=== PATIENT | male | born 1960 | race Caucasian/White ===

== ENCOUNTER 2020-01-15 16:30 | Observation (INO) ==
[2020-01-15] MEDS ORDERED: ONDANSETRON INJ 2 MG/ML 2 ML VIAL IV STA (17:16)
[2020-01-15] MEDS: HYDROmorphone INJ 1 MG/ML SYRINGE IV PRN ×3 (17:29→21:12)
--- NOTE | 2020-01-15 17:35 | XRay Report ---
XR chest 1V portable CLINICAL HISTORY: Chest Pain COMPARISON STUDY: No previous studies for comparison. FINDINGS: The bones soft tissues and hemidiaphragms are normal. The cardiomediastinal silhouette is n ormal. The lungs are clear. The pulmonary vasculature is normal. IMPRESSION: Negative chest. ACT 112: Negative or not required by law. The above report was generated using voice recognition software. It may contain grammatical, syntax or spelling errors. Electronically signed by: Erik Romo M.D. 01/15/2020 5:34 PM
[2020-01-15 17:52] LABS: Basophils # (auto) 0.01 K/uL (0-0.2); Basophils % (auto) 0.2 %; Eosinophils # (auto) 0.06 K/uL (0-0.5); Eosinophils % (auto) 1.2 %; Hematocrit (blood only) 40.6 % (42-52); Hemoglobin 14.3 g/dL (14.0-18.0); Immature Granulocytes # (auto) 0.03 K/uL (0.00-0.02); Immature Granulocytes % (auto) 0.6 %; Lymphocytes # (auto) 1.57 K/uL (1.2-3.4); Lymphocytes % (auto) 31.5 %; Mean Corpuscular Hemoglobin 32.9 pg (25-34); Mean Corpuscular Hgb Conc 35.2 g/dL (32-36); Mean Corpuscular Volume 93.3 fL (80-100); Mean Platelet Volume 9.3 fL (7.4-10.4); Monocytes # (auto) 0.28 K/uL (0.11-0.59); Monocytes % (auto) 5.6 %; Neutrophils # (auto) 3.03 K/uL (1.4-6.5); Neutrophils % (auto) 60.9 %; Platelet Count 222 K/uL (130-400); RDW Coefficient of Variation 12.5 % (11.5-14.5); RDW Standard Deviation 42.8 fL (36.4-46.3); Red Blood Count 4.35 M/uL (4.7-6.1); White Blood Count 4.98 K/uL (4.8-10.8)
[2020-01-15 17:55] LABS: iSTAT Creatinine 0.9 mg/dl (0.6-1.3); iSTAT Hemoglobin 13.9 g/dl (14.0-18.0); iSTAT Ionized Calcium 1.15 mmol/l (1.12-1.32); iSTAT Potassium 3.6 mmol/L (3.3-5.0)
[2020-01-15 18:03] LABS: INR 1.1 (0.9-1.1); Partial Thromboplastin Ratio 1.2; Partial Thromboplastin Time 32.6 Seconds (21.0-31.0); Prothrombin Time 11.1 Seconds (9.0-12.0)
[2020-01-15] MEDS ORDERED: OPTIRAY 320 125ml IV PRN (18:07)
[2020-01-15 18:14] LABS: Alanine Aminotransferase 51 U/L (12-78); Albumin Level 4.4 gm/dl (3.4-5.0); Aspartate Aminotransferase 46 U/L (15-37); Blood Urea Nitrogen 10 mg/dl (7-18); Calcium 8.8 mg/dl (8.5-10.1); Carbon Dioxide 24 mmol/L (21-32); Chloride 107 mmol/L (98-107); Est GFR (African American) 95.1; Glucose 92 mg/dl (70-99); Lipase 118 U/L (73-393); Potassium 3.5 mmol/L (3.5-5.1); Sodium 138 mmol/L (136-145)
[2020-01-15 18:24] LABS: Albumin Globulin Ratio 1.2 (0.9-2); Alkaline Phosphatase 66 U/L (45-117); Bilirubin,Total 0.5 mg/dl (0.2-1); Creatine Kinase 448 U/L (39-308); Creatine Kinase MB 10.1 ng/ml (0.5-3.6); Globulin 3.6 gm/dl (2.5-4.0); Troponin I < 0.015 ng/ml (0-0.045)
--- NOTE | 2020-01-15 18:24 | CT Scan Report ---
CT angio chest PE protocol CT DOSE: 839.97 mGy.cm HISTORY: Chest pain. Dyspnea. PE TECHNIQUE: Multiaxial CT images of the chest were performed following the intravenous administration of contrast to evaluate the pulmonary arteries. Maximal intensity projection images were also obtaine d. A dose lowering technique was utilized adhering to the principles of ALARA. COMPARISON STUDY: None. FINDINGS: There is a normal caliber thoracic aorta with no evidence for dissection. There is no evide nce for pulmonary embolus. No pleural effusions. No pneumothorax. The liver and spleen are unremarkab le. No mediastinal or hilar lymphadenopathy. The central airways are patent. The lungs are clear. IMPRESSION: No evidence for pulmonary embolus. The lungs are clear. ACT 112: Negative or not required by law. The above report was generated using voice recognition software. It may contain grammatical, syntax or spelling errors. Electronically signed by: Erik Romo M.D. 01/15/2020 6:23 PM
--- NOTE | 2020-01-15 18:27 | CT Scan Report ---
CT abd pelvis IV con only CT DOSE: HISTORY: Pain Pt c/o RUQ abd pain TECHNIQUE: Multiaxial CT images of the abdomen and pelvis were performed following the use of intrave nous contrast. A dose lowering technique was utilized adhering to the principles of ALARA. COMPARISON STUDY: 07/22/2016 FINDINGS: The lung bases are clear. The liver, spleen, gallbladder, pancreas, kidneys, and adrenal gl ands are within normal limits. No bowel wall thickening or obstruction. The pelvic organs are unremar kable. No suspicious lytic or blastic osseous lesions. Normal appendix. Nonobstructive bowel pattern. IMPRESSION: No significant abnormality identified within the abdomen or pelvis. ACT 112: Negative or not required by law. The above report was generated using voice recognition software. It may contain grammatical, syntax or spelling errors. Electronically signed by: Erik Romo M.D. 01/15/2020 6:26 PM
--- NOTE | 2020-01-15 19:25 | Ultrasound Report ---
US abdomen limited HISTORY: Pain. Nausea. Pt c/o RUQ abd pain. COMPARISON: None. FINDINGS: Pancreas: The pancreas demonstrates a normal echotexture. Liver: Fatty infiltration Gallbladder: No gallbladder wall thickening. No gallstones. CBD: 5 mm Right kidney: No hydronephrosis. 1.6 cm upper pole cyst IMPRESSION: 1. Mild fatty replacement of the liver. 2. Small right renal cyst. 3. Otherwise normal study. ACT 112: Negative or not required by law. The above report was generated using voice recognition software. It may contain grammatical, syntax or spelling errors. Electronically signed by: Erik Romo M.D. 01/15/2020 7:24 PM
[2020-01-15] MEDS ORDERED: SUCRALFATE 1 GM TAB PO STA (19:43)
[2020-01-15] MEDS ORDERED: HYDROmorphone INJ 1 MG/ML SYRINGE IV STA (19:43)
[2020-01-15] MEDS ORDERED: GI COCKTAIL ED USE PO ONE (19:43)
[2020-01-15] MEDS ORDERED: FAMOTIDINE 40 MG TABLET PO ONE (19:43)
[2020-01-15] MEDS ORDERED: LIDOCAINE 5% 1 PATCH TD SCH (19:45)
[2020-01-15] MEDS ORDERED: LORazepam 1 MG TAB SL STA (21:10)
[2020-01-15] MEDS ORDERED: ACETAMINOPHEN 1,000 MG/100 ML VIAL IV STA (21:11)
[2020-01-15] MEDS ORDERED: NITROGLYCERIN 2% OINTMENT 30GM TUBE EXT STA (21:39)
[2020-01-15] MEDS ORDERED: NITROGLYCERIN SL 0.4 MG/TAB TAB SL STA (21:40)
[2020-01-15] MEDS ORDERED: METOPROLOL TARTRATE 1 MG/ML VIAL IV STA (21:43)
[2020-01-15] MEDS ORDERED: MoRPHine SULFATE 4 MG/ML 1 ML CARP\\VIAL IV PRN (21:53)
[2020-01-15] MEDS ORDERED: PROMETHAZINE HCL 12.5 MG in SODIUM CHLORIDE 0.9% 50 ML IV PRN (21:53)
[2020-01-15] MEDS ORDERED: METOPROLOL TARTRATE 50 MG TAB PO STA (22:16)
[2020-01-15] MEDS ORDERED: DOXEPIN HCL 25 MG CAPSULE PO STA (22:16)
[2020-01-15] MEDS ORDERED: AMLODIPINE BESYLATE 5 MG TAB PO ONE (22:16)
--- NOTE | 2020-01-15 22:22 | History & Physical Report ---
Date of Service January 15, 2020 Assessment & Plan (1) Chest pain: Lower chest/epigastric pain Likely reflux hx GERD not on Rx Daily alcohol intake contributory to GERD Rule out ACS given nitro relief nonocclusive CAD as per records Hypertension, elevated Multifactorial : Chest/abdominal pain missed medications ? Alcohol withdrawal chronic diastolic dysfunction as per records, euvolemic asthma/angioedema/idiopathic urticaria as per records, stable OBS PCU PPI trial for possible GERD Follow troponin Cardiology consult RE chest pain relieved by nitroglycerin Analgesia Facilitate home BP meds, may need dose titration DT precautions DVT prophylaxis. Lovenox subcu Full code Text document was generated using [employer] voice recognition software. It may contain grammatical or spelling errors. Kindly contact undersigned for clarification of any documentation item in [employer] ion. History of Present Illness Chief Complaint: Epigastric, rib cage pain Primary Care Provider: Erik Snyder MD History obtained from patient and records. Medical history significant for chronic diastolic dysfunction as per records (EF 55 to 60%, TTE 2016), nonocclusive CAD as per records, hypertension, hyperlipidemia, GERD, asthma, daily alcohol intake as per records, angioedema/idiopathic urticaria as per records. Last confinement June 2016 for atypical chest pain. No inducible ischemia on DSE. 2 weeks history of burning epigastric discomfort going to the rib cage and left axilla with some shortness of breath with nausea and emesis. No cough symptoms, no headache. 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 Admits to daily alcohol intake (> 5 beers a day). Unable to take his home BP meds over the weekend. At the ER, no response to initial GI cocktail and Dilaudid administration. Discomfort relieved by nitroglycerin SL. 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, maintenance work Allergies Allergy/AdvReac Type Severity Reaction Status Date / Time aspirin Allergy Unknown ANAPHYLAXIS Verified 01/15/20 17:46 NSAIDS (Non-Steroidal Allergy Unknown ANAPHYLAXIS Verified 01/15/20 17:46 Anti-Inflamma Home Medications Home Medications Medication Instructions Recorded Confirmed Type amlodipine 5 mg PO DAILY 01/15/20 01/15/20 History doxepin 25 - 50 mg PO HS PRN 01/15/20 01/15/20 History loratadine 10 mg PO DAILY PRN 01/15/20 01/15/20 History metoprolol tartrate 50 mg PO BID 01/15/20 01/15/20 History triamterene-hydrochlorothiazid 1 tab PO QAM 01/15/20 01/15/20 History Past Med/Surg History Social History Preferred Language: Azerbaijani Communication Ability: Effective Counselor/Art Therapist Required: No Beliefs That Will Affect Care: None Current Living Situation: Spouse Other Information That Helps Us Care for You: No Feels Safe at Home: Yes Safety Concerns: Feels Safe At This Time Smoking Status: Former smoker Do You Dip or Chew Tobacco: No ; Hx Alcohol Use: Yes Alcohol type: beer Hx Substance Use: No Review of Systems Review of Systems: As per HPI, all 10 systems reviewed, all other ROS negative Physical Exam Physical Exam: GENERAL: Slightly uncomfortable, anxious, no respiratory distress, obese SKIN: Normal color, warm HEENT: Alopecia, pink palpebral conjunctivae, no ptosis, dry buccal mucosa NECK : Supple, short neck, no tenderness CHEST : CTA, no tenderness HEART : RRR, no obvious murmurs ABDOMEN: Some distention, minimal epigastric tenderness EXTREMITIES : No LE swelling/tenderness, no other conspicuous deformities noted NEUROLOGIC : Coherent, no facial asymmetry, no other gross focality Results & Data Results & Data ([facility]) Vital Signs (Past 12 Hours) Vital Signs Temp Pulse Pulse Resp BP BP Pulse Ox 01/15/20 21:31 96 H 20 95 01/15/20 21:30 85 26 H 172/95 H 91 01/15/20 21:12 86 18 161/92 H 89 L 01/15/20 21:00 72 15 91 01/15/20 20:30 69 19 90 01/15/20 20:00 75 19 94 01/15/20 19:30 78 17 96 01/15/20 18:43 76 18 156/93 H 95 01/15/20 18:41 156/93 H 97 01/15/20 18:01 78 18 152/87 H 96 01/15/20 18:00 71 19 94 01/15/20 17:54 74 20 152/87 H 94 01/15/20 17:44 74 19 209/117 H 91 01/15/20 17:43 75 22 94 01/15/20 17:30 98 01/15/20 17:29 73 18 152/99 H 96 01/15/20 17:28 74 21 152/99 H 92 01/15/20 16:40 37 C 90 22 163/99 H 98 Laboratory Results Laboratory Results WBC 4.98 K/uL (4.8-10.8) 01/15/20 17:25 RBC 4.35 M/uL (4.7-6.1) L 01/15/20 17:25 Hgb 14.3 g/dL (14.0-18.0) 01/15/20 17:25 POC Hgb 13.9 g/dl (14.0-18.0) L 01/15/20 17:42 Hct 40.6 % (42-52) L 01/15/20 17:25 POC Hct 41 % (42-52) L 01/15/20 17:42 MCV 93.3 fL (80-100) 01/15/20 17:25 MCH 32.9 pg (25-34) 01/15/20 17:25 MCHC 35.2 g/dL (32-36) 01/15/20 17:25 RDW Std Deviation 42.8 fL (36.4-46.3) 01/15/20 17:25 RDW Coeff of Angelic 12.5 % (11.5-14.5) 01/15/20 17:25 Plt Count 222 K/uL (130-400) 01/15/20 17:25 MPV 9.3 fL (7.4-10.4) 01/15/20 17:25 Immature Gran % (Auto) 0.6 % 01/15/20 17:25 Neut % (Auto) 60.9 % 01/15/20 17:25 Lymph % (Auto) 31.5 % 01/15/20 17:25 Throckmorton % (Auto) 5.6 % 01/15/20 17:25 Eos % (Auto) 1.2 % 01/15/20 17:25 Baso % (Auto) 0.2 % 01/15/20 17:25 Neut # (Auto) 3.03 K/uL (1.4-6.5) 01/15/20 17:25 Lymph # (Auto) 1.57 K/uL (1.2-3.4) 01/15/20 17:25 Throckmorton # (Auto) 0.28 K/uL (0.11-0.59) 01/15/20 17:25 Eos # (Auto) 0.06 K/uL (0-0.5) 01/15/20 17:25 Baso # (Auto) 0.01 K/uL (0-0.2) 01/15/20 17:25 Immature Gran # (Auto) 0.03 K/uL (0.00-0.02) H 01/15/20 17:25 PT 11.1 Seconds (9.0-12.0) 01/15/20 17:25 INR 1.1 (0.9-1.1) 01/15/20 17:25 APTT 32.6 Seconds (21.0-31.0) H 01/15/20 17:25 PTT Ratio 1.2 01/15/20 17:25 POC Sodium 139 mmol/L (135-144) 01/15/20 17:42 Sodium 138 mmol/L (136-145) 01/15/20 17:25 POC Potassium 3.6 mmol/L (3.3-5.0) 01/15/20 17:42 Potassium 3.5 mmol/L (3.5-5.1) 01/15/20 17:25 POC Chloride 104 mmol/L (101-112) 01/15/20 17:42 Chloride 107 mmol/L (98-107) 01/15/20 17:25 Carbon Dioxide 24 mmol/L (21-32) 01/15/20 17:25 POC Total CO2 22 mmol/L (24-31) L 01/15/20 17:42 Anion Gap 7.0 (3-11) 01/15/20 17:25 POC Anion Gap 17.0 mmol/L (16-25) 01/15/20 17:42 POC BUN 10 mg/dl (7-18) 01/15/20 17:42 BUN 10 mg/dl (7-18) 01/15/20 17:25 Creatinine 1.00 mg/dl (0.6-1.4) 01/15/20 17:25 POC Creatinine 0.9 mg/dl (0.6-1.3) 01/15/20 17:42 Est Cr Clr Drug Dosing 89.0 ml/min 01/15/20 17:25 Est GFR ( Amer) 95.1 01/15/20 17:25 Est GFR (Non-Af Amer) 82.0 01/15/20 17:25 BUN/Creatinine Ratio 10.0 (10-20) 01/15/20 17:25 Glucose 92 mg/dl (70-99) 01/15/20 17:25 POC Glucose (other) 95 mg/dl (70-99) 01/15/20 17:42 Calcium 8.8 mg/dl (8.5-10.1) 01/15/20 17:25 POC Ioniz Calcium Brisa 1.15 mmol/l (1.12-1.32) 01/15/20 17:42 Magnesium 2.3 mg/dl (1.8-2.4) 01/15/20 20:00 Total Bilirubin 0.5 mg/dl (0.2-1) 01/15/20 17:25 AST 46 U/L (15-37) H 01/15/20 17:25 ALT 51 U/L (12-78) 01/15/20 17:25 Alkaline Phosphatase 66 U/L (45-117) 01/15/20 17:25 Total Creatine Kinase 448 U/L (39-308) H 01/15/20 17:25 CK-MB (CK-2) 10.1 ng/ml (0.5-3.6) H 01/15/20 17:25 CK/CKMB % Calc 2.3 (0-3.0) 01/15/20 17:25 Troponin I < 0.015 ng/ml (0-0.045) 01/15/20 20:00 Total Protein 8.0 gm/dl (6.4-8.2) 01/15/20 17:25 Albumin 4.4 gm/dl (3.4-5.0) 01/15/20 17:25 Globulin 3.6 gm/dl (2.5-4.0) 01/15/20 17:25 Albumin/Globulin Ratio 1.2 (0.9-2) 01/15/20 17:25 Lipase 118 U/L (73-393) 01/15/20 17:[address] chest: No evidence for pulmonary embolus. The lungs are clear. CT abdomen pelvis: No significant abnormality identified within the abdomen or pelvis. Abdominal ultrasound: 1. Mild fatty replacement of the liver. 2. Small right renal cyst. 3. Otherwise normal study. EKG as per my interpretation : Rate 85, NSR, LAD, LAFB, no ischemia (1) Chest pain Chest pain type: unspecified Qualified Code(s): R07.9 - Chest pain, unspecified
[2020-01-15] MEDS ORDERED: PANTOprazole 40 MG in SYRINGE 0 ML IV ONE (22:30)
[2020-01-16] MEDS ORDERED: LACTATED RINGER'S 1,000 ML IV SCH (00:46)
--- NOTE | 2020-01-16 01:51 | Emergency Department Note ---
History of Present Illness General Chief complaint: Chest Pain Stated complaint: SOB, CHEST PAIN Time Seen by Provider: 01/15/20 17:01 Source: patient, RN notes reviewed and old records reviewed Mode of arrival: ambulatory Limitations: no limitations History of Present Illness Provider complaint: chest pain Onset (ago): day(s) 2 Location: chest Radiation: abdomen Severity: moderate Pain Consistency: + colicky Maximum Pain Intensity: 7 Current Pain Intensity: 7 Quality: + aching Relieved By: + immobilization Exacerbated By: + movement Associated symptoms: + shortness of breath; no diaphoresis, no fever/chills, no headaches and no nausea/vomiting Treatments prior to arrival: none This is a 59-year-old male who presents emergency department complaining of epigastric pain. The patient reports he was moving heavy objects at his job on Wednesday. He felt his xiphoid part of his sternum was sticking out of his chest and he had to put it back in place. He is complaining of epigastric pain and feels extremely short of breath. He is hyperventilating on my physical examination. Patient describes the pain as burning. Holding still makes the pain better taking a deep breath makes the pain worse. The patient had a cardiac catheterization approximately 5 years ago which was found to be clean. Home Medications Home Medications Medication Instructions Recorded Confirmed Type amlodipine 5 mg PO DAILY 01/15/20 01/15/20 History doxepin 25 - 50 mg PO HS PRN 01/15/20 01/15/20 History loratadine 10 mg PO DAILY PRN 01/15/20 01/15/20 History metoprolol tartrate 50 mg PO BID 01/15/20 01/15/20 History triamterene-hydrochlorothiazid 1 tab PO QAM 01/15/20 01/15/20 History Allergies Allergy/AdvReac Type Severity Reaction Status Date / Time aspirin Allergy Unknown ANAPHYLAXIS Verified 01/15/20 17:46 NSAIDS (Non-Steroidal Allergy Unknown ANAPHYLAXIS Verified 01/15/20 17:46 Anti-Inflamma Past Med/Surg History Social History Preferred Language: Estonian Feels Safe at Home: Yes Smoking Status: Never smoker Review of Systems A total of 10 systems reviewed and were otherwise negative Physical Exam Vital Signs Vital Signs - 24 hr 01/15/20 16:40 01/15/20 17:13 01/15/20 17:28 Temperature 37 C Temperature Source Oral Pulse Rate 90 74 Pulse Rate [Apical] Pulse Rate from SpO2 Sensor 74 Pulse Rhythm Regular Pulse Strength Normal Respiratory Rate 22 21 Respiratory Effort / Characteristics Non-Labored Spontaneous Respiratory Depth Normal Respiratory Pattern Regular Blood Pressure 163/99 H 152/99 H Blood Pressure [Left Arm] Blood Pressure Mean 120 119 Blood Pressure Mean [Left Arm] Blood Pressure Position Sitting Pulse Oximetry 98 92 Oxygen Delivery Method Room Air Room Air Sepsis Recent Fever Within 48 Hours No Sepsis New/Unexplained Change in Mental Status No Sepsis Action Taken by Nursing No Action Required 01/15/20 17:29 01/15/20 17:30 01/15/20 17:43 Temperature Temperature Source Pulse Rate 75 Pulse Rate [Apical] 73 Pulse Rate from SpO2 Sensor 75 Pulse Rhythm Pulse Strength Respiratory Rate 18 22 Respiratory Effort / Characteristics Non-Labored Respiratory Depth Normal Respiratory Pattern Blood Pressure Blood Pressure [Left Arm] 152/99 H Blood Pressure Mean Blood Pressure Mean [Left Arm] 116 Blood Pressure Position Pulse Oximetry 96 98 94 Oxygen Delivery Method Room Air Room Air Sepsis Recent Fever Within 48 Hours Sepsis New/Unexplained Change in Mental Status Sepsis Action Taken by Nursing 01/15/20 17:44 01/15/20 17:54 01/15/20 18:00 Temperature Temperature Source Pulse Rate 74 74 71 Pulse Rate [Apical] Pulse Rate from SpO2 Sensor 75 77 71 Pulse Rhythm Pulse Strength Respiratory Rate 19 20 19 Respiratory Effort / Characteristics Respiratory Depth Respiratory Pattern Blood Pressure 209/117 H 152/87 H Blood Pressure [Left Arm] Blood Pressure Mean 154 100 Blood Pressure Mean [Left Arm] Blood Pressure Position Pulse Oximetry 91 94 94 Oxygen Delivery Method Sepsis Recent Fever Within 48 Hours Sepsis New/Unexplained Change in Mental Status Sepsis Action Taken by Nursing 01/15/20 18:01 01/15/20 18:41 01/15/20 18:43 Temperature Temperature Source Pulse Rate Pulse Rate [Apical] 78 76 Pulse Rate from SpO2 Sensor 71 Pulse Rhythm Pulse Strength Respiratory Rate 18 18 Respiratory Effort / Characteristics Non-Labored Respiratory Depth Normal Respiratory Pattern Blood Pressure 156/93 H Blood Pressure [Left Arm] 152/87 H 156/93 H Blood Pressure Mean 97 Blood Pressure Mean [Left Arm] 108 114 Blood Pressure Position Pulse Oximetry 96 97 95 Oxygen Delivery Method Room Air Room Air Sepsis Recent Fever Within 48 Hours Sepsis New/Unexplained Change in Mental Status Sepsis Action Taken by Nursing 01/15/20 19:30 01/15/20 20:00 01/15/20 20:30 Temperature Temperature Source Pulse Rate 78 75 69 Pulse Rate [Apical] Pulse Rate from SpO2 Sensor 75 74 71 Pulse Rhythm Pulse Strength Respiratory Rate 17 19 19 Respiratory Effort / Characteristics Respiratory Depth Respiratory Pattern Blood Pressure Blood Pressure [Left Arm] Blood Pressure Mean Blood Pressure Mean [Left Arm] Blood Pressure Position Pulse Oximetry 96 94 90 Oxygen Delivery Method Sepsis Recent Fever Within 48 Hours Sepsis New/Unexplained Change in Mental Status Sepsis Action Taken by Nursing 01/15/20 21:00 01/15/20 21:12 01/15/20 21:30 Temperature Temperature Source Pulse Rate 72 86 85 Pulse Rate [Apical] Pulse Rate from SpO2 Sensor 72 86 85 Pulse Rhythm Pulse Strength Respiratory Rate 15 18 26 H Respiratory Effort / Characteristics Respiratory Depth Respiratory Pattern Blood Pressure 161/92 H 172/95 H Blood Pressure [Left Arm] Blood Pressure Mean 101 119 Blood Pressure Mean [Left Arm] Blood Pressure Position Pulse Oximetry 91 89 L 91 Oxygen Delivery Method Sepsis Recent Fever Within 48 Hours Sepsis New/Unexplained Change in Mental Status Sepsis Action Taken by Nursing 01/15/20 21:31 01/15/20 22:00 01/15/20 22:01 Temperature Temperature Source Pulse Rate 96 H 99 H 93 H Pulse Rate [Apical] Pulse Rate from SpO2 Sensor 93 H 98 H 91 H Pulse Rhythm Pulse Strength Respiratory Rate 20 18 21 Respiratory Effort / Characteristics Respiratory Depth Respiratory Pattern Blood Pressure 191/106 H Blood Pressure [Left Arm] Blood Pressure Mean 153 Blood Pressure Mean [Left Arm] Blood Pressure Position Pulse Oximetry 95 91 93 Oxygen Delivery Method Sepsis Recent Fever Within 48 Hours Sepsis New/Unexplained Change in Mental Status Sepsis Action Taken by Nursing 01/15/20 22:30 01/15/20 22:44 01/15/20 22:45 Temperature Temperature Source Pulse Rate 63 91 H 93 H Pulse Rate [Apical] Pulse Rate from SpO2 Sensor 64 88 93 H Pulse Rhythm Pulse Strength Respiratory Rate 17 26 H 19 Respiratory Effort / Characteristics Respiratory Depth Respiratory Pattern Blood Pressure 182/94 H 173/119 H 145/100 H Blood Pressure [Left Arm] Blood Pressure Mean 115 158 133 Blood Pressure Mean [Left Arm] Blood Pressure Position Pulse Oximetry 95 93 95 Oxygen Delivery Method Sepsis Recent Fever Within 48 Hours Sepsis New/Unexplained Change in Mental Status Sepsis Action Taken by Nursing 01/15/20 22:47 01/15/20 22:57 01/15/20 23:00 Temperature Temperature Source Pulse Rate 83 73 77 Pulse Rate [Apical] Pulse Rate from SpO2 Sensor 83 73 74 Pulse Rhythm Pulse Strength Respiratory Rate 18 14 16 Respiratory Effort / Characteristics Respiratory Depth Respiratory Pattern Blood Pressure 145/82 H 138/94 Blood Pressure [Left Arm] Blood Pressure Mean 91 101 Blood Pressure Mean [Left Arm] Blood Pressure Position Pulse Oximetry 95 90 88 L Oxygen Delivery Method Sepsis Recent Fever Within 48 Hours Sepsis New/Unexplained Change in Mental Status Sepsis Action Taken by Nursing 01/15/20 23:01 01/15/20 23:15 01/15/20 23:26 Temperature Temperature Source Pulse Rate 75 81 58 L Pulse Rate [Apical] Pulse Rate from SpO2 Sensor 75 81 60 Pulse Rhythm Pulse Strength Respiratory Rate 16 14 16 Respiratory Effort / Characteristics Respiratory Depth Respiratory Pattern Blood Pressure 132/104 H 150/92 H Blood Pressure [Left Arm] Blood Pressure Mean 108 115 Blood Pressure Mean [Left Arm] Blood Pressure Position Pulse Oximetry 90 93 Oxygen Delivery Method Sepsis Recent Fever Within 48 Hours Sepsis New/Unexplained Change in Mental Status Sepsis Action Taken by Nursing 01/15/20 23:30 01/15/20 23:45 01/16/20 00:00 Temperature Temperature Source Pulse Rate 57 L 59 L 59 L Pulse Rate [Apical] Pulse Rate from SpO2 Sensor 57 L 57 L 58 L Pulse Rhythm Pulse Strength Respiratory Rate 13 15 17 Respiratory Effort / Characteristics Respiratory Depth Respiratory Pattern Blood Pressure 145/88 H 143/87 H 145/86 H Blood Pressure [Left Arm] Blood Pressure Mean 102 109 107 Blood Pressure Mean [Left Arm] Blood Pressure Position Pulse Oximetry 93 92 94 Oxygen Delivery Method Sepsis Recent Fever Within 48 Hours Sepsis New/Unexplained Change in Mental Status Sepsis Action Taken by Nursing 01/16/20 00:15 01/16/20 00:30 01/16/20 00:45 Temperature Temperature Source Pulse Rate 56 L 59 L 58 L Pulse Rate [Apical] Pulse Rate from SpO2 Sensor 54 L 59 L 58 L Pulse Rhythm Pulse Strength Respiratory Rate 13 11 L 17 Respiratory Effort / Characteristics Respiratory Depth Respiratory Pattern Blood Pressure 130/81 125/89 143/82 H Blood Pressure [Left Arm] Blood Pressure Mean 102 104 107 Blood Pressure Mean [Left Arm] Blood Pressure Position Pulse Oximetry 94 94 94 Oxygen Delivery Method Sepsis Recent Fever Within 48 Hours Sepsis New/Unexplained Change in Mental Status Sepsis Action Taken by Nursing 01/16/20 01:00 Temperature Temperature Source Pulse Rate 59 L Pulse Rate [Apical] Pulse Rate from SpO2 Sensor 57 L Pulse Rhythm Pulse Strength Respiratory Rate 19 Respiratory Effort / Characteristics Respiratory Depth Respiratory Pattern Blood Pressure 120/82 Blood Pressure [Left Arm] Blood Pressure Mean 101 Blood Pressure Mean [Left Arm] Blood Pressure Position Pulse Oximetry 94 Oxygen Delivery Method Sepsis Recent Fever Within 48 Hours Sepsis New/Unexplained Change in Mental Status Sepsis Action Taken by Nursing VITAL SIGNS - Vital signs and nursing notes were reviewed. GENERAL - 59-year-old male appearing stated age who is writhing in pain, hyperventilating. Communicates well with provider and answers questions appro priately. SKIN - Without rashes. HEAD - NC/AT. EYES - PERRL with EOMI bilaterally. Sclera anicteric. Palpebral conjunctiva pink and moist with no injection noted. EARS - No deformities of external structures noted on gross examination bilaterally. No pain elicited with palpation of the tragus bilaterally. External auditory canals without discharge or otorrhea. Tympanic membranes pearly norman wi thout retraction or bulging. No fluid or purulent material visualized behind the TM. Handle of malleus, umbo, cone of light, pars tensa/flaccid all easily visualized. NOSE - Midline and without cyanosis. No epistaxis or purulent drainage noted. Septum midline without deviation or septal hematoma noted. MOUTH/OROPHARYNX - Without perioral cyanosis. Buccal mucosa pink and moist and without leukoplakia. Tongue midline with equal elevation of palate bilaterally. No tonsillar hypertrophy, erythema, or exudates noted. dentition noted. NECK - Neck with FROM. Supple to palpation. lymphadenopathy noted. No nuchal rigidity. LUNGS - Chest wall symmetric without accessory muscle use, intercostals retractions, or central cyanosis. Normal vesicular breath sounds CTA B/L. No wheezes, rales, or rhonchi appreciated. CARDIAC - RRR with S1/S2. No murmur, rubs, or gallops appreciated. ABDOMEN - Abdominal contour without pulsations or visible masses. BS normoactive all four quadrants. No tenderness, palpable masses, hepatosplenomegaly, or ascites noted. EXTREMITIES - No clubbing or peripheral cyanosis. No pretibial edema present. +3/5 radial, posterior tibial, and dorsalis pedis pulses palpated throughout. +5/5 strength noted in UE/LE bilaterally. NEUROLOGIC - Cranial nerves II through XII grossly intact. Sensory intact to light touch throughout. Patellar reflexes +2/4. PSYCH - A&Ox3 and cooperates fully with examiner. Pt is very pleasant and interacts well with examiner. Course Administered Medications Lactated Ringer's (Lr) 1,000 mls @ 40 mls/hr IV .Q24H TOSHA Stop: 02/15/20 00:45 Last Admin: 01/16/20 01:18 Dose: 40 mls/hr Documented by: [id number] Ioversol (Optiray 320 125ml) 119 ml IV ONCE PRN PRN Reason: Interaction Checking Stop: 01/19/20 18:06 Last Admin: 01/15/20 18:08 Dose: 119 ml Documented by: [id number] Lidocaine (Lidoderm 5%) 1 patch TD QAM TOSHA Stop: 02/14/20 19:44 Last Admin: 01/15/20 20:06 Dose: 1 patch Documented by: [id number] Discontinued Medications Al Hydrox/Mg Hydrox/Simethicone () 1 dose PO ONE ONE Stop: 01/15/20 19:44 Last Admin: 01/15/20 20:06 Dose: 1 dose Documented by: [id number] Amlodipine Besylate (Norvasc) 5 mg PO NOW ONE Stop: 01/15/20 22:17 Last Admin: 01/15/20 23:27 Dose: 5 mg Documented by: [id number] Doxepin HCl (Sinequan) 25 mg PO NOW STA Stop: 01/15/20 22:17 Last Admin: 01/15/20 22:42 Dose: 25 mg Documented by: [id number] Famotidine (Pepcid) 40 mg PO NOW ONE Stop: 01/15/20 19:44 Last Admin: 01/15/20 20:08 Dose: 40 mg Documented by: [id number] Hydromorphone HCl (Dilaudid) 1 mg IV Q15M PRN PRN Reason: Pain Stop: 01/29/20 17:15 Last Admin: 01/15/20 21:12 Dose: 1 mg Documented by: [id number] Admin: 01/15/20 18:44 Dose: 1 mg Documented by: [id number] Admin: 01/15/20 17:29 Dose: 1 mg Documented by: [id number] Hydromorphone HCl (Dilaudid) 1 mg IV NOW STA Stop: 01/15/20 19:44 Last Admin: 01/15/20 20:06 Dose: 1 mg Documented by: [id number] Acetaminophen (Ofirmev) 1,000 mg in 100 mls @ 400 mls/hr IV NOW STA Stop: 01/15/20 21:25 Last Infusion: 01/15/20 21:41 Dose: 0 mls/hr Documented by: [id number] Admin: 01/15/20 21:24 Dose: 400 mls/hr Documented by: [id number] Pantoprazole Sodium 40 mg/ (Syringe) 10 mls @ 5 mls/min IV NOW ONE Stop: 01/15/20 22:31 Last Admin: 01/15/20 22:42 Dose: 5 mls/min Documented by: [id number] Lorazepam (Ativan) 1 mg SL NOW STA Stop: 01/15/20 21:11 Last Admin: 01/15/20 21:24 Dose: 1 mg Documented by: [id number] Metoprolol Tartrate (Lopressor) 2.5 mg IV NOW STA Stop: 01/15/20 21:44 Last Admin: 01/15/20 22:41 Dose: 2.5 mg Documented by: [id number] Metoprolol Tartrate (Lopressor) 50 mg PO NOW STA Stop: 01/15/20 22:17 Last Admin: 01/15/20 23:26 Dose: 50 mg Documented by: [id number] Nitroglycerin (Nitrostat) 0.4 mg SL NOW STA Stop: 01/15/20 21:41 Last Admin: 01/15/20 22:41 Dose: 0.4 mg Documented by: [id number] Ondansetron HCl (Zofran) 4 mg IV NOW STA Stop: 01/15/20 17:17 Last Admin: 01/15/20 17:29 Dose: 4 mg Documented by: [id number] Sucralfate (Carafate Tab) 1 gm PO NOW STA Stop: 01/15/20 19:44 Last Admin: 01/15/20 20:10 Dose: 1 gm Documented by: [id number] Medical Decision Making Differential Diagnosis Cardiac ischemia, aortic dissection, pulmonary embolism, pneumothorax, pneumonia, pericarditis, myocarditis, esophageal rupture, GERD, cholecystitis, pancreatitis, musculoskeletal, as well as other pathologies. Medical Records Attestation: I reviewed the patient's medical records. Home Medications Current Medication List: was personally reviewed by me Laboratory Data Attestation: I reviewed the patient's lab results. Result diagrams: 01/15/20 17:25 01/15/20 17:25 Lab Results 01/15/20 01/15/20 01/15/20 Range/Units 17:25 17:25 17:25 WBC 4.98 (4.8-10.8) K/uL RBC 4.35 L (4.7-6.1) M/uL Hgb 14.3 (14.0-18.0) g/dL POC Hgb (14.0-18.0) g/dl Hct 40.6 L (42-52) % POC Hct (42-52) % MCV 93.3 (80-100) fL MCH 32.9 (25-34) pg MCHC 35.2 (32-36) g/dL RDW Std Deviation 42.8 (36.4-46.3) fL RDW Coeff of Angelic 12.5 (11.5-14.5) % Plt Count 222 (130-400) K/uL MPV 9.3 (7.4-10.4) fL Immature Gran % (Auto) 0.6 % Neut % (Auto) 60.9 % Lymph % (Auto) 31.5 % [place] % (Auto) 5.6 % Eos % (Auto) 1.2 % Baso % (Auto) 0.2 % Neut # (Auto) 3.03 (1.4-6.5) K/uL Lymph # (Auto) 1.57 (1.2-3.4) K/uL [place] # (Auto) 0.28 (0.11-0.59) K/uL Eos # (Auto) 0.06 (0-0.5) K/uL Baso # (Auto) 0.01 (0-0.2) K/uL Immature Gran # (Auto) 0.03 H (0.00-0.02) K/uL PT 11.1 (9.0-12.0) Seconds INR 1.1 (0.9-1.1) APTT 32.6 H (21.0-31.0) Seconds PTT Ratio 1.2 POC Sodium (135-144) mmol/L Sodium 138 (136-145) mmol/L POC Potassium (3.3-5.0) mmol/L Potassium 3.5 (3.5-5.1) mmol/L POC Chloride (101-112) mmol/L Chloride 107 (98-107) mmol/L Carbon Dioxide 24 (21-32) mmol/L POC Total CO2 (24-31) mmol/L Anion Gap 7.0 (3-11) POC Anion Gap (16-25) mmol/L POC BUN (7-18) mg/dl BUN 10 (7-18) mg/dl Creatinine 1.00 (0.6-1.4) mg/dl POC Creatinine (0.6-1.3) mg/dl Est Cr Clr Drug Dosing 89.0 ml/min Est GFR ( Amer) 95.1 Est GFR (Non-Af Amer) 82.0 BUN/Creatinine Ratio 10.0 (10-20) Glucose 92 (70-99) mg/dl POC Glucose (other) (70-99) mg/dl Calcium 8.8 (8.5-10.1) mg/dl POC Ioniz Calcium Brisa (1.12-1.32) mmol/l Magnesium (1.8-2.4) mg/dl Total Bilirubin 0.5 (0.2-1) mg/dl AST 46 H (15-37) U/L ALT 51 (12-78) U/L Alkaline Phosphatase 66 (45-117) U/L Total Creatine Kinase 448 H (39-308) U/L CK-MB (CK-2) 10.1 H (0.5-3.6) ng/ml CK/CKMB % Calc 2.3 (0-3.0) Troponin I < 0.015 (0-0.045) ng/ml Total Protein 8.0 (6.4-8.2) gm/dl Albumin 4.4 (3.4-5.0) gm/dl Globulin 3.6 (2.5-4.0) gm/dl Albumin/Globulin Ratio 1.2 (0.9-2) Lipase 118 (73-393) U/L Ethyl Alcohol mg/dL (0-3) mg/dl 01/15/20 01/15/20 01/15/20 Range/Units 17:42 20:00 20:00 WBC (4.8-10.8) K/uL RBC (4.7-6.1) M/uL Hgb (14.0-18.0) g/dL POC Hgb 13.9 L (14.0-18.0) g/dl Hct (42-52) % POC Hct 41 L (42-52) % MCV (80-100) fL MCH (25-34) pg MCHC (32-36) g/dL RDW Std Deviation (36.4-46.3) fL RDW Coeff of Angelic (11.5-14.5) % Plt Count (130-400) K/uL MPV (7.4-10.4) fL Immature Gran % (Auto) % Neut % (Auto) % Lymph % (Auto) % [place] % (Auto) % Eos % (Auto) % Baso % (Auto) % Neut # (Auto) (1.4-6.5) K/uL Lymph # (Auto) (1.2-3.4) K/uL [place] # (Auto) (0.11-0.59) K/uL Eos # (Auto) (0-0.5) K/uL Baso # (Auto) (0-0.2) K/uL Immature Gran # (Auto) (0.00-0.02) K/uL PT (9.0-12.0) Seconds INR (0.9-1.1) APTT (21.0-31.0) Seconds PTT Ratio POC Sodium 139 (135-144) mmol/L Sodium (136-145) mmol/L POC Potassium 3.6 (3.3-5.0) mmol/L Potassium (3.5-5.1) mmol/L POC Chloride 104 (101-112) mmol/L Chloride (98-107) mmol/L Carbon Dioxide (21-32) mmol/L POC Total CO2 22 L (24-31) mmol/L Anion Gap (3-11) POC Anion Gap 17.0 (16-25) mmol/L POC BUN 10 (7-18) mg/dl BUN (7-18) mg/dl Creatinine (0.6-1.4) mg/dl POC Creatinine 0.9 (0.6-1.3) mg/dl Est Cr Clr Drug Dosing ml/min Est GFR ( Amer) Est GFR (Non-Af Amer) BUN/Creatinine Ratio (10-20) Glucose (70-99) mg/dl POC Glucose (other) 95 (70-99) mg/dl Calcium (8.5-10.1) mg/dl POC Ioniz Calcium Brisa 1.15 (1.12-1.32) mmol/l Magnesium 2.3 (1.8-2.4) mg/dl Total Bilirubin (0.2-1) mg/dl AST (15-37) U/L ALT (12-78) U/L Alkaline Phosphatase (45-117) U/L Total Creatine Kinase (39-308) U/L CK-MB (CK-2) (0.5-3.6) ng/ml CK/CKMB % Calc (0-3.0) Troponin I < 0.015 (0-0.045) ng/ml Total Protein (6.4-8.2) gm/dl Albumin (3.4-5.0) gm/dl Globulin (2.5-4.0) gm/dl Albumin/Globulin Ratio (0.9-2) Lipase (73-393) U/L Ethyl Alcohol mg/dL (0-3) mg/dl 01/15/20 01/15/20 Range/Units 22:47 22:47 WBC (4.8-10.8) K/uL RBC (4.7-6.1) M/uL Hgb (14.0-18.0) g/dL POC Hgb (14.0-18.0) g/dl Hct (42-52) % POC Hct (42-52) % MCV (80-100) fL MCH (25-34) pg MCHC (32-36) g/dL RDW Std Deviation (36.4-46.3) fL RDW Coeff of Angelic (11.5-14.5) % Plt Count (130-400) K/uL MPV (7.4-10.4) fL Immature Gran % (Auto) % Neut % (Auto) % Lymph % (Auto) % [place] % (Auto) % Eos % (Auto) % Baso % (Auto) % Neut # (Auto) (1.4-6.5) K/uL Lymph # (Auto) (1.2-3.4) K/uL [place] # (Auto) (0.11-0.59) K/uL Eos # (Auto) (0-0.5) K/uL Baso # (Auto) (0-0.2) K/uL Immature Gran # (Auto) (0.00-0.02) K/uL PT (9.0-12.0) Seconds INR (0.9-1.1) APTT (21.0-31.0) Seconds PTT Ratio POC Sodium (135-144) mmol/L Sodium (136-145) mmol/L POC Potassium (3.3-5.0) mmol/L Potassium (3.5-5.1) mmol/L POC Chloride (101-112) mmol/L Chloride (98-107) mmol/L Carbon Dioxide (21-32) mmol/L POC Total CO2 (24-31) mmol/L Anion Gap (3-11) POC Anion Gap (16-25) mmol/L POC BUN (7-18) mg/dl BUN (7-18) mg/dl Creatinine (0.6-1.4) mg/dl POC Creatinine (0.6-1.3) mg/dl Est Cr Clr Drug Dosing ml/min Est GFR ( Amer) Est GFR (Non-Af Amer) BUN/Creatinine Ratio (10-20) Glucose (70-99) mg/dl POC Glucose (other) (70-99) mg/dl Calcium (8.5-10.1) mg/dl POC Ioniz Calcium Brisa (1.12-1.32) mmol/l Magnesium (1.8-2.4) mg/dl Total Bilirubin (0.2-1) mg/dl AST (15-37) U/L ALT (12-78) U/L Alkaline Phosphatase (45-117) U/L Total Creatine Kinase (39-308) U/L CK-MB (CK-2) (0.5-3.6) ng/ml CK/CKMB % Calc (0-3.0) Troponin I < 0.015 (0-0.045) ng/ml Total Protein (6.4-8.2) gm/dl Albumin (3.4-5.0) gm/dl Globulin (2.5-4.0) gm/dl Albumin/Globulin Ratio (0.9-2) Lipase (73-393) U/L Ethyl Alcohol mg/dL < 3.0 (0-3) mg/dl Imaging Data Radiologist's Impression: [facility], [place] [phone] Ultrasound Report Patient: LANCE BENTLEY EAdmit Date: 01/15/20 MR#: [id number]: [address] [facility] Acct ID:[id number]: Date: [address] [place] [address] Zip: [place] [address] Age: 59Location: ED Sex: M Room/Bed: Att Phy:Diagnosis: SOB, CHEST PAIN Erica Phy: Erik Snyder, MDService Date: 01/15/20 Fam Phy:Interpreting Phy: Erik Romo MD Admit Phy: Ordering Phy: Miguelangel Magallon MD cc: ~ US abdomen limited HISTORY: Pain. Nausea. Pt c/o RUQ abd pain. COMPARISON: None. FINDINGS: Pancreas: The pancreas demonstrates a normal echotexture. Liver: Fatty infiltration Gallbladder: No gallbladder wall thickening. No gallstones. CBD: 5 mm Right kidney: No hydronephrosis. 1.6 cm upper pole cyst IMPRESSION: 1. Mild fatty replacement of the liver. 2. Small right renal cyst. 3. Otherwise normal study. ACT 112: Negative or not required by law. The above report was generated using voice recognition software. It may contain grammatical, syntax or spelling errors. Electronically signed by: Erik Romo M.D. 01/15/2020 7:24 PM Dictated: 01/15/201922 Transcribed: 01/15/201922 [facility] [phone] XRay Report Patient: LANCE BENTLEY EAdmit Date: 01/15/20 MR#: [id number]: [address] [facility] Acct ID:[id number]: Date: [address] [place] [address] Zip: [place] [address] Age: 59Location: ED Sex: M Room/Bed: Att Phy:Diagnosis: SOB, CHEST PAIN Erica Phy: Erik Snyder, MDService Date: 01/15/20 Fam Phy:Interpreting Phy: Erik Romo MD Admit Phy: Ordering Phy: Miguelangel Magallon MD cc: ~ XR chest 1V portable CLINICAL HISTORY: Chest Pain COMPARISON STUDY: No previous studies for comparison. FINDINGS: The bones soft tissues and hemidiaphragms are normal. The cardiomediastinal silhouette is normal. The lungs are clear. The pulmonary vasculature is normal. IMPRESSION: Negative chest. ACT 112: Negative or not required by law. The above report was generated using voice recognition software. It may contain grammatical, syntax or spelling errors. Electronically signed by: Erik Romo M.D. 01/15/2020 5:34 PM Dictated: 01/15/201733 Transcribed: 01/15/201733 [place], [place] [phone] CT Scan Report Patient: LANCE BENTLEY EAdmit Date: 01/15/20 MR#: [id number]: [address] [facility] Acct ID:[id number]: Date: 1960[facility] Zip: [place] [address] Age: 59Location: ED Sex: M Room/Bed: Att Phy:Diagnosis: SOB, CHEST PAIN Erica Phy: Erik Snyder, MDService Date: 01/15/20 Fam Phy:Interpreting Phy: Erik Romo MD Admit Phy: Ordering Phy: Miguelangel Magallon MD cc: ~ CT abd pelvis IV con only CT DOSE: HISTORY: Pain Pt c/o RUQ abd pain TECHNIQUE: Multiaxial CT images of the abdomen and pelvis were performed following the use of intravenous contrast. A dose lowering technique was u tilized adhering to the principles of ALARA. COMPARISON STUDY: 07/22/2016 FINDINGS: The lung bases are clear. The liver, spleen, gallbladder, pancreas, kidneys, and adrenal glands are within normal limits. No bowel wall thickening or obstruction. The pelvic organs are unremarkable. No suspicious lytic or blastic osseous lesions. Normal appendix. Nonobstructive bowel pattern. IMPRESSION: No significant abnormality identified within the abdomen or pelvis. ACT 112: Negative or not required by law. The above report was generated using voice recognition software. It may contain grammatical, syntax or spelling errors. Electronically signed by: Erik Romo M.D. 01/15/2020 6:26 PM Dictated: 01/15/201823 Transcribed: 01/15/201823 [place], [place] [phone] CT Scan Report Patient: LANCE BENTLEY Date: 01/15/20 MR#: [id number]: 122 [facility] Acct ID:[id number]: Date: 1960[facility] Zip: [place] [address] Age: 59Location: ED Sex: M Room/Bed: Att Phy:Diagnosis: SOB, CHEST PAIN Erica Phy: Erik Snyder, MDService Date: 01/15/20 Fam Phy:Interpreting Phy: Erik Romo MD Admit Phy: Ordering Phy: Miguelangel Magallon MD cc: ~ CT angio chest PE protocol CT DOSE: 839.97 mGy.cm HISTORY: Chest pain. Dyspnea. PE TECHNIQUE: Multiaxial CT images of the chest were performed following the intravenous administration of contrast to evaluate the pulmonary arteries. Maximal intensity projection images were also obtained. A dose lowering technique was utilized adhering to the principles of ALARA. COMPARISON STUDY: None. FINDINGS: There is a normal caliber thoracic aorta with no evidence for disse ction. There is no evidence for pulmonary embolus. No pleural effusions. No pneumothorax. The liver and spleen are unremarkable. No mediastinal or hilar lymphadenopathy. The central airways are patent. The lungs are clear. IMPRESSION: No evidence for pulmonary embolus. The lungs are clear. ACT 112: Negative or not required by law. The above report was generated using voice recognition software. It may contain grammatical, syntax or spelling errors. Electronically signed by: Erik Romo M.D. 01/15/2020 6:23 PM Dictated: 01/15/201820 Transcribed: 01/15/201820 ECG Data Attestation: I personally reviewed and interpreted this ECG as follows: Indication: chest pain Rate (beats per minute): 86 Rhythm: normal sinus Findings: no ST depression and no ST elevation Comparison ECG Date: no prior available Additional Comments: Repeat EKG shows a QTC of 434 normal axis normal sinus rhythm normal EKG no ST elevation or depression rate of 66 unchanged from previous Blood Pressure Blood Pressure Findings: Normal blood pressure MDM Narrative This is a 59-year-old male who presents emergency department complaining of epigastric pain. Patient feels that he hurt a rib over the weekend. I try to get this patient's pain under control multiple times here in the emergency department by trying multiple medications including Tylenol Dilaudid GI cocktail Pepcid Carafate, Toradol and finally nitro. Patient was writhing around the bed multiple times and was hyperventilating. He was also given Ativan. Serial EKGs were performed in this patient in the emergency department and at no time the patient show ischemia on the EKG. He was sent for CAT scan of the chest abdomen pelvis however this also does not show any acute process. Based on all these findings along with the fact that I cannot get the patient's pain under control I did discuss the case with the hospitalist service who did agree to admit the patient. Patient is in agreement with the treatment plan. Patient was seen and evaluated as above in room A2. Review was performed of nursing notes and vital signs. I did review pertinent previous visits and miguel a ent history. After obtaining a thorough history and physical examination the above work up was performed. An order was placed for continuous cardiac monitoring. The monitor shows a rate of 59 with Normal Sinus rhythm. The patient was evaluated during the global COVID-19 pandemic, and that diagnosis was suspected/considered upon their initial presentation. Their evaluation, treatment and testing was consistent with current guidelines for patients who present with complaints or symptoms that may be related to COVID- 19. Impression & Plan Chest pain, Asthma, mild intermittent Discharge Plan Visit Data Chief Complaint: Chest Pain Stated Complaint: SOB, CHEST PAIN ED Provider: Miguelangel Magallon Discharge Problem: Chest pain, Asthma, mild intermittent Forms Stand Alone Forms: [facility] Prescriptions Prescriptions: No Action amlodipine 5 mg Tablet 5 mg PO DAILY RF: 0 metoprolol tartrate 50 mg Tablet 50 mg PO BID RF: 0 triamterene-hydrochlorothiazid 37.5-25 mg tablet 1 tab PO QAM RF: 0 loratadine 10 mg Tablet 10 mg PO DAILY PRN (Reason: Allergy Symptoms) RF: 0 doxepin 25 mg capsule 25 - 50 mg PO HS PRN (Reason: Hives) RF: 0 Discharge Problem: Chest pain Qualifiers: Chest pain type: unspecified Qualified Code(s): R07.9 - Chest pain, unspecified Asthma, mild intermittent Qualifiers: Asthma complication type: unspecified Qualified Code(s): J45.20 - Mild intermittent asthma, uncomplicated
[2020-01-16] MEDS ORDERED: DOXEPIN HCL 25 MG CAPSULE PO PRN (01:59)
[2020-01-16] MEDS ORDERED: LORazepam 0.5 MG/1 ML VIAL IV PRN (01:59)
[2020-01-16] MEDS ORDERED: ACETAMINOPHEN 325 MG TAB PO PRN (01:59)
[2020-01-16] MEDS ORDERED: PROMETHAZINE HCL 12.5 MG in SODIUM CHLORIDE 0.9% 50 ML IV PRN (01:59)
[2020-01-16] MEDS ORDERED: LORATADINE 10 MG TAB PO PRN (01:59)
[2020-01-16] MEDS ORDERED: POTASSIUM CHLORIDE 40 MEQ in SODIUM CHLORIDE 0.9% 1000ML 1,000 ML IV ONE (01:59)
[2020-01-16] MEDS: OXYCODONE HCL IR 5 MG TAB (IMMEDIATE RELEASE) PO PRN ×3 (03:48→16:19)
[2020-01-16] MEDS ORDERED: AMLODIPINE BESYLATE 5 MG TAB PO ONE (04:05)
[2020-01-16] MEDS ORDERED: GABAPENTIN 1200MG ALCOHOL WITHDRAWAL LOAD PO STA (04:06)
[2020-01-16] MEDS ORDERED: ATIVAN IV ALCOHOL WITHDRAWL IV PRN (04:06)
[2020-01-16] MEDS ORDERED: LORazepam 2 MG/4 ML VIAL IV PRN (04:06)
[2020-01-16] MEDS ORDERED: LORazepam 3 MG/6 ML VIAL IV PRN (04:06)
[2020-01-16] MEDS ORDERED: LORazepam 1 MG/2 ML VIAL IV PRN (04:06)
[2020-01-16] MEDS ORDERED: THIAMINE HCL 100 MG in SYRINGE 9 ML IV STA (04:09)
[2020-01-16] MEDS ORDERED: GABAPENTIN 600 MG TAB PO SCH (04:15)
[2020-01-16 04:29] LABS: Basophils # (auto) 0.01 K/uL (0-0.2); Basophils % (auto) 0.2 %; Eosinophils # (auto) 0.03 K/uL (0-0.5); Eosinophils % (auto) 0.5 %; Hematocrit (blood only) 40.3 % (42-52); Hemoglobin 13.7 g/dL (14.0-18.0); Immature Granulocytes # (auto) 0.01 K/uL (0.00-0.02); Immature Granulocytes % (auto) 0.2 %; Lymphocytes # (auto) 1.36 K/uL (1.2-3.4); Lymphocytes % (auto) 22.6 %; Mean Corpuscular Hemoglobin 32.2 pg (25-34); Mean Corpuscular Volume 94.6 fL (80-100); Mean Platelet Volume 9.3 fL (7.4-10.4); Monocytes # (auto) 0.36 K/uL (0.11-0.59); Neutrophils # (auto) 4.24 K/uL (1.4-6.5); Neutrophils % (auto) 70.5 %; Platelet Count 213 K/uL (130-400); RDW Coefficient of Variation 12.5 % (11.5-14.5); RDW Standard Deviation 43.2 fL (36.4-46.3); Red Blood Count 4.26 M/uL (4.7-6.1); White Blood Count 6.01 K/uL (4.8-10.8)
[2020-01-16 04:38] LABS: Partial Thromboplastin Ratio 1.1; Partial Thromboplastin Time 30.8 Seconds (21.0-31.0)
[2020-01-16 04:45] LABS: Blood Urea Nitrogen 11 mg/dl (7-18); Calcium 8.5 mg/dl (8.5-10.1); Carbon Dioxide 25 mmol/L (21-32); Chloride 105 mmol/L (98-107); Creatinine Clr Calc Pharmacy 84.2 ml/min; Est GFR (African American) 92.8; Est GFR (Non-African American) 80.1; Glucose 113 mg/dl (70-99); Potassium 3.9 mmol/L (3.5-5.1); Sodium 138 mmol/L (136-145)
[2020-01-16 04:49] LABS: Chol HDL Ratio 5; Cholesterol 203 mg/dl (0-200); HDL Cholesterol 40 mg/dl; LDL Cholesterol Calculated 85 mg/dl; Triglycerides 388 mg/dl (0-150); Troponin I < 0.015 ng/ml (0-0.045); VLDL Cholesterol 78 mg/dl
[2020-01-16] MEDS ORDERED: PANTOprazole 40 MG TAB PO SCH (09:00)
[2020-01-16] MEDS ORDERED: AMLODIPINE BESYLATE 5 MG TAB PO SCH (09:00)
[2020-01-16] MEDS ORDERED: FOLIC ACID 1 MG TAB PO SCH (09:00)
[2020-01-16] MEDS ORDERED: MULTIVITAMIN TAB PO SCH (09:00)
[2020-01-16] MEDS ORDERED: ENOXAPARIN INJ 40 MG/0.4 ML SYR SQ SCH (09:00)
[2020-01-16] MEDS ORDERED: METOPROLOL TARTRATE 50 MG TAB PO SCH (09:00)
--- NOTE | 2020-01-16 09:34 | Cardiology Consultation ---
Date of Consultation January 16, 2020 Assessment & Plan (1) Chest pain: (2) GERD (gastroesophageal reflux disease): This patient has a longstanding history of atypical chest pain from GERD. In 2010 he had a cardiac catheterization that showed minor coronary artery disease. He does have a history of alcohol abuse. He came in with chest pain that was prolonged and despite having this prolonged chest pain he has negative cardiac markers. His EKG is normal. I would recommend no additional cardiac testing. I believe the patient can be discharged to outpatient follow-up with his primary care physician. History of Present Illness Attending Physician: Johnny Handy MD History of Present Illness The patient is a 59-year-old with a long history of atypical chest pain due to GERD. By our records he has minimal nonobstructive coronary artery disease. He came into the emergency department with severe epigastric and chest discomfort which after multiple medications eventually resolved and he feels fine today. Cardiac markers are negative. His EKG is normal. He does have a history of alcohol abuse. Past medical history: 1. Noncardiac chest pain - resolved 2. Minimal nonobstructive CAD. 3. HTN - controlled 4. Dyslipidemia with hypertriglyceridemia - borderline control 5. Moderate alcohol intake - improved 6. History of tobacco abuse in the form of snuff. 7. Aspirin and NSAID allergy. Allergies Allergy/AdvReac Type Severity Reaction Status Date / Time aspirin Allergy Unknown ANAPHYLAXIS Verified 01/15/20 17:46 NSAIDS (Non-Steroidal Allergy Unknown ANAPHYLAXIS Verified 01/15/20 17:46 Anti-Inflamma Home Medications Home Medications Medication Instructions Recorded Confirmed Type amlodipine 5 mg PO DAILY 01/15/20 01/15/20 History doxepin 25 - 50 mg PO HS PRN 01/15/20 01/15/20 History loratadine 10 mg PO DAILY PRN 01/15/20 01/15/20 History metoprolol tartrate 50 mg PO BID 01/15/20 01/15/20 History triamterene-hydrochlorothiazid 1 tab PO QAM 01/15/20 01/15/20 History Patient History Social History Preferred Language: Kazakh Communication Ability: Effective Shorts Sifter Required: No Beliefs That Will Affect Care: None Current Living Situation: Spouse Other Information That Helps Us Care for You: No Feels Safe at Home: Yes Safety Concerns: Feels Safe At This Time Smoking Status: Former smoker Do You Dip or Chew Tobacco: No ; Hx Alcohol Use: Yes Alcohol type: beer Hx Substance Use: No Review of Systems Review of Systems: All systems reviewed & are unremarkable except as noted in HPI & below Nothing additional to add. Physical Exam Physical Exam: General: no acute distress and stated age Head: normocephalic, no masses, lesions, tenderness or abnormalities Eyes: conjunctiva are pink and non-injected, sclera clear Neck: supple, no adenopathy, no bruits, normal jugular venous pulse, no hepatojugular reflux Chest: normal shape and normal respiratory effort Lungs: clear to auscultation and percussion Cardiac Exam: - regular rate & rhythm, no murmurs gallops or rubs - normal S1, normal S2 Pulses: 2(+) throughout Abdomen: abdomen soft, non-tender, no abnormal masses and no hepatosplenomegaly Musculoskeletal: no gait disturbance, no joint inflammation, no deforming arthritis Extremities: no edema and no cyanosis Neuro: grossly normal exam Results & Data ([facility]) Vital Signs (Past 12 Hours) Vital Signs Temp Pulse Pulse Resp BP BP Pulse Ox 01/16/20 07:55 66 16 120/65 93 01/16/20 04:55 80 16 131/73 96 01/16/20 04:02 52 L 16 182/104 H 94 01/16/20 03:22 36.5 C 69 18 169/103 H 96 01/16/20 01:00 59 L 19 120/82 94 01/16/20 00:45 58 L 17 143/82 H 94 01/16/20 00:30 59 L 11 L 125/89 94 01/16/20 00:15 56 L 13 130/81 94 01/16/20 00:00 59 L 17 145/86 H 94 01/15/20 23:45 59 L 15 143/87 H 92 01/15/20 23:30 57 L 13 145/88 H 93 01/15/20 23:26 58 L 16 150/92 H 93 01/15/20 23:15 81 14 132/104 H 01/15/20 23:01 75 16 90 01/15/20 23:00 77 16 138/94 88 L 01/15/20 22:57 73 14 145/82 H 90 06/22/20 22:47 83 18 95 01/15/20 22:45 93 H 19 145/100 H 95 01/15/20 22:44 91 H 26 H 173/119 H 93 01/15/20 22:30 63 17 182/94 H 95 01/15/20 22:01 93 H 21 93 01/15/20 22:00 99 H 18 191/106 H 91 Laboratory Results Laboratory Results - last 24 hr 01/15/20 01/15/20 01/15/20 17:25 17:25 17:25 WBC 4.98 RBC 4.35 L Hgb 14.3 POC Hgb Hct 40.6 L POC Hct MCV 93.3 MCH 32.9 MCHC 35.2 RDW Std Deviation 42.8 RDW Coeff of Angelic 12.5 Plt Count 222 MPV 9.3 Immature Gran % (Auto) 0.6 Neut % (Auto) 60.9 Lymph % (Auto) 31.5 [place] % (Auto) 5.6 Eos % (Auto) 1.2 Baso % (Auto) 0.2 Neut # (Auto) 3.03 Lymph # (Auto) 1.57 [place] # (Auto) 0.28 Eos # (Auto) 0.06 Baso # (Auto) 0.01 Immature Gran # (Auto) 0.03 H PT 11.1 INR 1.1 APTT 32.6 H PTT Ratio 1.2 POC Sodium Sodium 138 POC Potassium Potassium 3.5 POC Chloride Chloride 107 Carbon Dioxide 24 POC Total CO2 Anion Gap 7.0 POC Anion Gap POC BUN BUN 10 Creatinine 1.00 POC Creatinine Est Cr Clr Drug Dosing 89.0 Est GFR ( Amer) 95.1 Est GFR (Non-Af Amer) 82.0 BUN/Creatinine Ratio 10.0 Glucose 92 POC Glucose (other) Calcium 8.8 POC Ioniz Calcium Brisa Magnesium Total Bilirubin 0.5 AST 46 H ALT 51 Alkaline Phosphatase 66 Total Creatine Kinase 448 H CK-MB (CK-2) 10.1 H CK/CKMB % Calc 2.3 Troponin I < 0.015 Total Protein 8.0 Albumin 4.4 Globulin 3.6 Albumin/Globulin Ratio 1.2 Triglycerides Cholesterol LDL Cholesterol, Calc VLDL Cholesterol, Calc HDL Cholesterol Cholesterol/HDL Ratio Lipase 118 Nasal Screen MRSA (PCR) Ethyl Alcohol mg/dL Hepatitis C Ab Screen 06/22/20 06/22/20 06/22/20 17:42 20:00 20:00 WBC RBC Hgb POC Hgb 13.9 L Hct POC Hct 41 L MCV MCH MCHC RDW Std Deviation RDW Coeff of Angelic Plt Count MPV Immature Gran % (Auto) Neut % (Auto) Lymph % (Auto) [place] % (Auto) Eos % (Auto) Baso % (Auto) Neut # (Auto) Lymph # (Auto) [place] # (Auto) Eos # (Auto) Baso # (Auto) Immature Gran # (Auto) PT INR APTT PTT Ratio POC Sodium 139 Sodium POC Potassium 3.6 Potassium POC Chloride 104 Chloride Carbon Dioxide POC Total CO2 22 L Anion Gap POC Anion Gap 17.0 POC BUN 10 BUN Creatinine POC Creatinine 0.9 Est Cr Clr Drug Dosing Est GFR ( Amer) Est GFR (Non-Af Amer) BUN/Creatinine Ratio Glucose POC Glucose (other) 95 Calcium POC Ioniz Calcium Brisa 1.15 Magnesium 2.3 Total Bilirubin AST ALT Alkaline Phosphatase Total Creatine Kinase CK-MB (CK-2) CK/CKMB % Calc Troponin I < 0.015 Total Protein Albumin Globulin Albumin/Globulin Ratio Triglycerides Cholesterol LDL Cholesterol, Calc VLDL Cholesterol, Calc HDL Cholesterol Cholesterol/HDL Ratio Lipase Nasal Screen MRSA (PCR) Ethyl Alcohol mg/dL Hepatitis C Ab Screen 01/15/20 01/15/20 01/16/20 22:47 22:47 03:26 WBC RBC Hgb POC Hgb Hct POC Hct MCV MCH MCHC RDW Std Deviation RDW Coeff of Angelic Plt Count MPV Immature Gran % (Auto) Neut % (Auto) Lymph % (Auto) [place] % (Auto) Eos % (Auto) Baso % (Auto) Neut # (Auto) Lymph # (Auto) [place] # (Auto) Eos # (Auto) Baso # (Auto) Immature Gran # (Auto) PT INR APTT PTT Ratio POC Sodium Sodium POC Potassium Potassium POC Chloride Chloride Carbon Dioxide POC Total CO2 Anion Gap POC Anion Gap POC BUN BUN Creatinine POC Creatinine Est Cr Clr Drug Dosing Est GFR ( Amer) Est GFR (Non-Af Amer) BUN/Creatinine Ratio Glucose POC Glucose (other) Calcium POC Ioniz Calcium Brisa Magnesium Total Bilirubin AST ALT Alkaline Phosphatase Total Creatine Kinase CK-MB (CK-2) CK/CKMB % Calc Troponin I < 0.015 Total Protein Albumin Globulin Albumin/Globulin Ratio Triglycerides Cholesterol LDL Cholesterol, Calc VLDL Cholesterol, Calc HDL Cholesterol Cholesterol/HDL Ratio Lipase Nasal Screen MRSA (PCR) Negative Ethyl Alcohol mg/dL < 3.0 Hepatitis C Ab Screen 01/16/20 01/16/20 01/16/20 04:07 04:07 04:07 WBC 6.01 RBC 4.26 L Hgb 13.7 L POC Hgb Hct 40.3 L POC Hct MCV 94.6 MCH 32.2 MCHC 34.0 RDW Std Deviation 43.2 RDW Coeff of Angelic 12.5 Plt Count 213 MPV 9.3 Immature Gran % (Auto) 0.2 Neut % (Auto) 70.5 Lymph % (Auto) 22.6 [place] % (Auto) 6.0 Eos % (Auto) 0.5 Baso % (Auto) 0.2 Neut # (Auto) 4.24 Lymph # (Auto) 1.36 [place] # (Auto) 0.36 Eos # (Auto) 0.03 Baso # (Auto) 0.01 Immature Gran # (Auto) 0.01 PT INR APTT 30.8 PTT Ratio 1.1 POC Sodium Sodium 138 POC Potassium Potassium 3.9 POC Chloride Chloride 105 Carbon Dioxide 25 POC Total CO2 Anion Gap 8.0 POC Anion Gap POC BUN BUN 11 Creatinine 1.02 POC Creatinine Est Cr Clr Drug Dosing 84.2 Est GFR ( Amer) 92.8 Est GFR (Non-Af Amer) 80.1 BUN/Creatinine Ratio 11.0 Glucose 113 H POC Glucose (other) Calcium 8.5 POC Ioniz Calcium Brisa Magnesium Total Bilirubin AST ALT Alkaline Phosphatase Total Creatine Kinase CK-MB (CK-2) CK/CKMB % Calc Troponin I < 0.015 Total Protein Albumin Globulin Albumin/Globulin Ratio Triglycerides 388 H Cholesterol 203 H LDL Cholesterol, Calc 85 VLDL Cholesterol, Calc 78 HDL Cholesterol 40 Cholesterol/HDL Ratio 5 Lipase Nasal Screen MRSA (PCR) Ethyl Alcohol mg/dL Hepatitis C Ab Screen 01/16/20 04:07 WBC RBC Hgb POC Hgb Hct POC Hct MCV MCH MCHC RDW Std Deviation RDW Coeff of Angelic Plt Count MPV Immature Gran % (Auto) Neut % (Auto) Lymph % (Auto) [place] % (Auto) Eos % (Auto) Baso % (Auto) Neut # (Auto) Lymph # (Auto) [place] # (Auto) Eos # (Auto) Baso # (Auto) Immature Gran # (Auto) PT INR APTT PTT Ratio POC Sodium Sodium POC Potassium Potassium POC Chloride Chloride Carbon Dioxide POC Total CO2 Anion Gap POC Anion Gap POC BUN BUN Creatinine POC Creatinine Est Cr Clr Drug Dosing Est GFR ( Amer) Est GFR (Non-Af Amer) BUN/Creatinine Ratio Glucose POC Glucose (other) Calcium POC Ioniz Calcium Brisa Magnesium Total Bilirubin AST ALT Alkaline Phosphatase Total Creatine Kinase CK-MB (CK-2) CK/CKMB % Calc Troponin I Total Protein Albumin Globulin Albumin/Globulin Ratio Triglycerides Cholesterol LDL Cholesterol, Calc VLDL Cholesterol, Calc HDL Cholesterol Cholesterol/HDL Ratio Lipase Nasal Screen MRSA (PCR) Ethyl Alcohol mg/dL Hepatitis C Ab Screen Neg Medications Administered Current Inpatient Medications Acetaminophen (Tylenol) 650 mg PO Q4H PRN PRN Reason: Pain or Fever Stop: 02/15/20 01:58 Amlodipine Besylate (Norvasc) 10 mg PO DAILY [facility] Stop: 02/16/20 08:59 Doxepin HCl (Sinequan) 25 - 50 mg PO HS PRN PRN Reason: Allergic Reaction Stop: 02/15/20 01:58 Enoxaparin Sodium (Lovenox) 40 mg SQ QAM [facility] Stop: 02/15/20 08:59 Last Admin: 01/16/20 10:34 Dose: 40 mg Documented by: Folic Acid (Folvite) 1 mg PO QAM [facility] Stop: 02/15/20 08:59 Last Admin: 01/16/20 10:35 Dose: 1 mg Documented by: Gabapentin (Neurontin) 600 mg PO Q6H [facility] Stop: 01/16/20 16:01 Last Admin: 01/16/20 10:35 Dose: 600 mg Documented by: Gabapentin (Neurontin) 600 mg PO Q8H [facility] Stop: 01/17/20 16:01 Gabapentin (Neurontin) 600 mg PO Q12H [facility] Stop: 01/18/20 18:01 Gabapentin (Neurontin) 600 mg PO Q24H [facility] Stop: 01/19/20 18:01 Promethazine HCl 12.5 mg/ (Sodium Chloride) 50.5 mls @ 202 mls/hr IV Q6H PRN PRN Reason: Nausea And Vomiting Stop: 02/14/20 21:52 Potassium Chloride 40 meq/ (Sodium Chloride) 1,020 mls @ 50 mls/hr IV .[id number] Stop: 01/16/20 22:22 Last Admin: 01/16/20 03:44 Dose: 50 mls/hr Documented by: Promethazine HCl 12.5 mg/ (Sodium Chloride) 50.5 mls @ 202 mls/hr IV Q6H PRN PRN Reason: Nausea And Vomiting Stop: 02/15/20 01:58 Lorazepam (Ativan) 0.5 mg in 1 mls @ 1 mls/min IV Q4H PRN PRN Reason: Anxiety/Agitation Stop: 02/15/20 01:58 Lorazepam (Ativan) 1 mg in 2 mls @ 2 mls/min IV UD PRN; Protocol PRN Reason: EtOH Withdrawl AWSS Score 6,7 Stop: 02/15/20 04:05 Lorazepam (Ativan) 2 mg in 4 mls @ 4 mls/min IV UD PRN; Protocol PRN Reason: EtOH Withdrawl AWSS Score 8,9 Stop: 02/15/20 04:05 Lorazepam (Ativan) 3 mg in 6 mls @ 4 mls/min IV ONCE PRN; Protocol PRN Reason: EtOH Withdrawl AWSS Score >=10 Stop: 02/15/20 04:05 Loratadine (Claritin) 10 mg PO DAILY PRN PRN Reason: Allergy Symptoms Stop: 02/15/20 01:58 Metoprolol Tartrate (Lopressor) 50 mg PO BID [facility] Stop: 02/15/20 08:59 Last Admin: 01/16/20 10:34 Dose: 50 mg Documented by: Morphine Sulfate (Morphine Sulfate) 4 mg IV Q4H PRN PRN Reason: Pain Stop: 01/29/20 21:52 Multivitamins (Multivitamin Tab) 1 tab PO [facility] Stop: 02/15/20 08:59 Last Admin: 01/16/20 10:35 Dose: 1 tab Documented by: Oxycodone HCl (Roxicodone Immediate Rel) 5 mg PO Q4H PRN PRN Reason: Pain Stop: 01/30/20 01:58 Last Admin: 01/16/20 03:48 Dose: 5 mg Documented by: Pantoprazole Sodium (Protonix) 40 mg PO DAILY [facility] Stop: 02/15/20 08:59 Last Admin: 01/16/20 10:35 Dose: 40 mg Documented by: Thiamine HCl (Vitamin B-1) 100 mg PO QAM [facility] Stop: 02/16/20 08:59 (1) Chest pain Chest pain type: unspecified Qualified Code(s): R07.9 - Chest pain, unspecified
[2020-01-16] MEDS: GABAPENTIN 600 MG TAB PO SCH ×2 (10:35→16:19)
[2020-01-16 12:19] LABS: Aspartate Aminotransferase 42 U/L (15-37); Creatine Kinase 274 U/L (39-308)
--- NOTE | 2020-01-16 13:52 | Hospitalist Progress Note ---
Date of Service January 16, 2020 Assessment & Plan (1) Chest pain: Present on admission with epigastric pain Atypical presentation CTA chest showed no evidence of PE Troponin x 4 negative EKG showed no ischemic changes Cardiology on board case discussed with dr. Landers No further cardiac testing as per community health education coordinator Ok from cardiology standpoint to discharge home Clinically stable GERD Abdominal discomfort CT abd/pelvis showed no significant abnormality identified within the abdomen or pelvis. Abd u/s showed mild fatty replacement of the liver. Continue to drink alcohol Continue PPI on discharge If symptoms do not improve, will need outpatient GI consult to arrange for EGD Advised pt to avoid medications that can trigger his symptoms such as alcohol, coffee, chocolate, spicy food, lemon, orange, tomato, ... Hypertension BP improved Amlodipine increased to 10mg daily Continue Metoprolol and triamterene/HCTZ Continue monitor BP Alcohol abuse Denies any hx of alcohol withdrawal or DT No signs of alcohol withdrawal On gabapentin alcohol withdrawal protocol Counseling on alcohol cessation Elevated Triglycerides Cholesterol 203, LDL 78, HDL 40 and Trig 388 Counseling on lifestyles change and follow a healthy diet Check Lipid panel in 3 months Chronic diastolic dysfunction CXR negative Continue metoprolol and Triamterene/.HCTZ Stable Elevated CPK CPK mildly elevated on admission Received IVF Repeat CPK normal Mild Elevated AST Possible related to alcohol abuse Abd u/s showed mild fatty replacement of the liver. Hep C screening negative Liver enzymes trending down Counseling on alcohol cessation Monitor Liver enzymes outpatient DVT px on Lovenox Full code Disposition Plan to discharge home today Admission and Anticipated Discharge Date Admission Date: January 15, 2020 Subjective Pt was seen and examined Lying in bed with no distress Pt said that he feels hungry He said that he has been having discomfort in his mid epigastric area Pt said that he drink about 3 to 5 beers every other few days and a little more on weekend He said that his BP usually runs high in the 180 systolic Currently denies any chest pain, palpitation, dizziness and SOB Physical Exam Physical Exam: General- No acute distress Head- atraumatic Eyes- PERRL, EOMI, ENT- oropharynx clear Neck- supple, no JVD Lungs- clear to auscultation Heart- regular rhythm; no murmur Abdomen- normal bowel sounds, soft, nontender Extremities- no calf tenderness Neuro- alert, oriented x 3; PERRL, EOMI; no facial palsy; no dysarthria Skin- warm & dry Results & Data Results & Data ([facility]) Vital Signs (Past 12 Hours) Vital Signs Temp Pulse Pulse Resp BP BP Pulse Ox 01/16/20 12:00 36.6 C 01/16/20 11:55 60 18 151/99 H 97 01/16/20 09:55 64 14 134/79 93 01/16/20 08:55 36.4 C L 64 131/82 93 01/16/20 07:55 66 16 120/65 93 01/16/20 04:55 80 16 131/73 96 01/16/20 04:02 52 L 16 182/104 H 94 01/16/20 03:22 36.5 C 69 18 169/103 H 96 (1) Chest pain Chest pain type: unspecified Qualified Code(s): R07.9 - Chest pain, unspecified
--- NOTE | 2020-01-16 15:34 | Electrocardiogram Report ---
Test Reason : Blood Pressure : / mmHG Vent. Rate : 086 BPM Atrial Rate : 086 BPM P-R Int : 150 ms QRS Dur : 092 ms QT Int : 364 ms P-R-T Axes : 048 001 026 degrees QTc Int : 435 ms Normal sinus rhythm Normal ECG When compared with ECG of 22-JUL-2016 15:43, Vent. rate has increased BY 28 BPM Confirmed by Shilo Beauchamp ([id number]) on 01/16/2020 3:33:44 PM Referred By: REFERRED SELF Confirmed By:Shilo Beauchamp
--- NOTE | 2020-01-16 15:39 | Electrocardiogram Report ---
Test Reason : Blood Pressure : / mmHG Vent. Rate : 066 BPM Atrial Rate : 066 BPM P-R Int : 152 ms QRS Dur : 086 ms QT Int : 414 ms P-R-T Axes : 054 001 017 degrees QTc Int : 434 ms Normal sinus rhythm Normal ECG When compared with ECG of 15-JAN-2020 16:40, (unconfirmed) No significant change was found Confirmed by Shilo Beauchamp ([id number]) on 01/16/2020 3:39:14 PM Referred By: REFERRED SELF Confirmed By:Shilo Beauchamp
[2020-01-16 16:47] LABS: Appearance Urine Clear (Clear); Bilirubin Urine Negative (Negative); Blood Urine Negative (Negative); Color Urine Yellow; Glucose Urine UA Negative (Negative); Ketones Urine Negative (Negative); Leukocyte Esterase Urine Negative (Negative); Nitrite Urine Negative (Negative); Protein Urine Negative (Negative); Specific Gravity Urine 1.013 (1.000-1.030); Urobilinogen Urine Negative (Negative); pH Urine 6.5 (4.5-7.5)
[2020-01-16 17:08] LABS: Amphetamines+Metham, Urine Neg (Neg); Barbiturates, Urine Neg (Neg); Benzodiazepine, Urine Neg (Neg); Cocaine, Urine Neg (Neg); MDMA (Ecstacy), Urine Neg (Neg); Methadone, Urine Neg (Neg); Opiate, Urine Pos (Neg); Phencyclidine, Urine Neg (Neg)
[2020-01-17] MEDS ORDERED: GABAPENTIN 600 MG TAB PO SCH
[2020-01-17] MEDS ORDERED: AMLODIPINE BESYLATE 5 MG TAB PO SCH (09:00)
[2020-01-17] MEDS ORDERED: THIAMINE HCL 100 MG TAB PO SCH (09:00)
[2020-01-18] MEDS ORDERED: GABAPENTIN 600 MG TAB PO SCH (06:00)
--- NOTE | 2020-01-19 00:10 | Discharge Summary ---
Date of Service January 16, 2020 Admission HPI Per Admitting Provider History obtained from patient and records. Medical history significant for chronic diastolic dysfunction as per records (EF 55 to 60%, TTE 2016), nonocclusive CAD as per records, hypertension, hyperlipidemia, GERD, asthma, daily alcohol intake as per records, angioedema/idiopathic urticaria as per records. Last confinement June 2016 for atypical chest pain. No inducible ischemia on DSE. 2 weeks history of burning epigastric discomfort going to the rib cage and left axilla with some shortness of breath with nausea and emesis. No cough symptoms, no headache. 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 Admits to daily alcohol intake (> 5 beers a day). Unable to take his home BP meds over the weekend. At the ER, no response to initial GI cocktail and Dilaudid administration. Discomfort relieved by nitroglycerin SL. 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, maintenance work Admission Exam Per Admitting Provider GENERAL: Slightly uncomfortable, anxious, no respiratory distress, obese SKIN: Normal color, warm HEENT: Alopecia, pink palpebral conjunctivae, no ptosis, dry buccal mucosa NECK : Supple, short neck, no tenderness CHEST : CTA, no tenderness HEART : RRR, no obvious murmurs ABDOMEN: Some distention, minimal epigastric tenderness EXTREMITIES : No LE swelling/tenderness, no other conspicuous deformities noted NEUROLOGIC : Coherent, no facial asymmetry, no other gross focality Principal Diagnosis Chest pain: GERD Abdominal discomfort Hypertension Alcohol abuse Elevated Triglycerides Chronic diastolic dysfunction Mild Elevated liver enzymes Discharge Exam General- No acute distress Head- atraumatic Eyes- PERRL, EOMI, ENT- oropharynx clear Neck- supple, no JVD Lungs- clear to auscultation Heart- regular rhythm; no murmur Abdomen- normal bowel sounds, soft, nontender Extremities- no calf tenderness Neuro- alert, oriented x 3; PERRL, EOMI; no facial palsy; no dysarthria Skin- warm & dry Discharge Data Allergies Allergy/AdvReac Type Severity Reaction Status Date / Time aspirin Allergy Unknown ANAPHYLAXIS Verified 01/15/20 17:46 NSAIDS (Non-Steroidal Allergy Unknown ANAPHYLAXIS Verified 01/15/20 17:46 Anti-Inflamma Consultations 01/15/20 21:35 ED Decision to Admit Stat 01/16/20 01:59 Consult Cardiology Routine Ordered Studies 01/15/20 17:16 US abdomen limited Stat 01/15/20 17:17 CT abd pelvis IV con only Stat CT angio chest PE protocol Stat US abdomen limited HISTORY: Pain. Nausea. Pt c/o RUQ abd pain. COMPARISON: None. FINDINGS: Pancreas: The pancreas demonstrates a normal echotexture. Liver: Fatty infiltration Gallbladder: No gallbladder wall thickening. No gallstones. CBD: 5 mm Right kidney: No hydronephrosis. 1.6 cm upper pole cyst IMPRESSION: 1. Mild fatty replacement of the liver. 2. Small right renal cyst. 3. Otherwise normal study. ACT 112: Negative or not required by law. The above report was generated using voice recognition software. It may contain grammatical, syntax or spelling errors. Electronically signed by: Erik Romo M.D. 01/15/2020 7:24 PM Dictated: 01/15/201922 Transcribed: 01/15/201922 XR chest 1V portable CLINICAL HISTORY: Chest Pain COMPARISON STUDY: No previous studies for comparison. FINDINGS: The bones soft tissues and hemidiaphragms are normal. The cardiomediastinal silhouette is normal. The lungs are clear. The pulmonary vasculature is normal. IMPRESSION: Negative chest. ACT 112: Negative or not required by law. The above report was generated using voice recognition software. It may contain grammatical, syntax or spelling errors. Electronically signed by: Erik Romo M.D. 01/15/2020 5:34 PM Dictated: 01/15/201733 Transcribed: 01/15/201733 CT abd pelvis IV con only CT DOSE: HISTORY: Pain Pt c/o RUQ abd pain TECHNIQUE: Multiaxial CT images of the abdomen and pelvis were performed following the use of intravenous contrast. A dose lowering technique was utilized adhering to the principles of ALARA. COMPARISON STUDY: 07/22/2016 FINDINGS: The lung bases are clear. The liver, spleen, gallbladder, pancreas, kidneys, and adrenal glands are within normal limits. No bowel wall thickening or obstruction. The pelvic organs are unremarkable. No suspicious lytic or blastic osseous lesions. Normal appendix. Nonobstructive bowel pattern. IMPRESSION: No significant abnormality identified within the abdomen or pelvis. ACT 112: Negative or not required by law. The above report was generated using voice recognition software. It may contain grammatical, syntax or spelling errors. Electronically signed by: Erik Romo M.D. 01/15/2020 6:26 PM Dictated: 01/15/201823 Transcribed: 01/15/201823 CT angio chest PE protocol CT DOSE: 839.97 mGy.cm HISTORY: Chest pain. Dyspnea. PE TECHNIQUE: Multiaxial CT images of the chest were performed following the intravenous administration of contrast to evaluate the pulmonary arteries. Maximal intensity projection images were also obtained. A dose lowering technique was utilized adhering to the principles of ALARA. COMPARISON STUDY: None. FINDINGS: There is a normal caliber thoracic aorta with no evidence for dissection. There is no evidence for pulmonary embolus. No pleural effusions. No pneumothorax. The liver and spleen are unremarkable. No mediastinal or hilar lymphadenopathy. The central airways are patent. The lungs are clear. IMPRESSION: No evidence for pulmonary embolus. The lungs are clear. ACT 112: Negative or not required by law. The above report was generated using voice recognition software. It may contain grammatical, syntax or spelling errors. Electronically signed by: Erik Romo M.D. 01/15/2020 6:23 PM Dictated: 01/15/201820 Transcribed: 01/15/201820 Hospital Course (1) Chest pain: Present on admission with epigastric pain Atypical presentation CTA chest showed no evidence of PE Troponin x 4 negative EKG showed no ischemic changes Cardiology on board case discussed with dr. Landers No further cardiac testing as per door manager Ok from cardiology standpoint to discharge home Clinically stable GERD Abdominal discomfort CT abd/pelvis showed no significant abnormality identified within the abdomen or pelvis. Abd u/s showed mild fatty replacement of the liver. Continue to drink alcohol Continue PPI on discharge If symptoms do not improve, will need outpatient GI consult to arrange for EGD Advised pt to avoid medications that can trigger his symptoms such as alcohol, coffee, chocolate, spicy food, lemon, orange, tomato, ... Hypertension BP improved Amlodipine increased to 10mg daily Continue Metoprolol and triamterene/HCTZ Continue monitor BP Alcohol abuse Denies any hx of alcohol withdrawal or DT No signs of alcohol withdrawal On gabapentin alcohol withdrawal protocol Counseling on alcohol cessation Elevated Triglycerides Cholesterol 203, LDL 78, HDL 40 and Trig 388 Counseling on lifestyles change and follow a healthy diet Check Lipid panel in 3 months Chronic diastolic dysfunction CXR negative Continue metoprolol and Triamterene/.HCTZ Stable Elevated CPK CPK mildly elevated on admission Received IVF Repeat CPK normal Mild Elevated AST Possible related to alcohol abuse Abd u/s showed mild fatty replacement of the liver. Hep C screening negative Liver enzymes trending down Counseling on alcohol cessation Monitor Liver enzymes outpatient DVT px on Lovenox Full code Disposition Plan to discharge home today Total Time Total Time Spent Total Time Spent (In Minutes): 35 minutes Total Time Includes: Examination of the Patient, Discharge Planning, Medication Reconciliation, Communication With Other Providers and Other Discharge Plan Discharge Items Patient Disposition: Home - Self-Care Reason For Visit: CHEST PAIN, HTN URGENCY Discharge Diagnosis: Chest pain: GERD Abdominal discomfort Hypertension Alcohol abuse Elevated Triglycerides Chronic diastolic dysfunction Mild Elevated liver ezymes Activity: Resume your previous activity Non-emergency contact: Primary Care Provider Call non-emergency contact if: you have any medication questions and your pain is worsening Follow-up/Referrals: Erik Snyder MD [Primary Care Provider] - Diet: Heart Healthy Addtl Attending Provider Instructions: Follow up with your primary care physician Dr. Snyder within 1 week ( Office will call you for the appointment) Counseling on alcohol cessation Your physician will refer you to gastroenterology to get evaluate for the acid reflex Continue monitor your blood pressure and bring your blood pressure log at your n ext appointment with your physician Avoid any food/substances that can trigger your symptoms such as alcohol, coffee, chocolate, spicy food, lemon, orange, tomato, ... Check Lipid panel in 3 months Amlodipine increased to 10mg daily ( Ok to take 2 tablets of 5mg for now). New script sent for the Amlodipine 10mg. Pending Studies at Discharge: No Stand-Alone Forms: My Group-IB, Smoking Cessation Medications and DC Order Prescriptions: New thiamine HCl (vitamin B1) [Vitamin B-1] 100 mg Tablet 100 mg PO QAM 30 Days Qty: 30 RF: 0 pantoprazole 40 mg Tablet,Delayed Release (Dr/Ec) 40 mg PO DAILY 30 Days Qty: 30 RF: 0 folic acid 1 mg Tablet 1 mg PO QAM 30 Days Qty: 30 RF: 0 amlodipine 10 mg tablet 10 mg PO DAILY Qty: 30 RF: 0 Continued metoprolol tartrate 50 mg Tablet 50 mg PO BID RF: 0 triamterene-hydrochlorothiazid 37.5-25 mg tablet 1 tab PO QAM RF: 0 loratadine 10 mg Tablet 10 mg PO DAILY PRN (Reason: Allergy Symptoms) RF: 0 doxepin 25 mg capsule 25 - 50 mg PO HS PRN (Reason: Hives) RF: 0 Discontinued amlodipine 5 mg Tablet 5 mg PO DAILY RF: 0 Discharge Orders: Discharge Order (Routine); Ordered 01/16/20 Ordered By: Johnny Priest/Other Patient Handouts: ED GERD (Adult) Admission Data Admit Date/Time: 01/15/20 22:25 Attending Provider: Johnny Handy Admit Provider: Isaias Yang Primary Care Provider: Erik Snyder Other Providers: Isaias Yang ; Gabriel Nieto Other Interventions: Discharge Summary Assessment (RN) Last Done: 01/16/20 17:53 DC Date/Time DO NOT enter until pt leaves facility: 01/16/20 19:10
[2020-01-19 08:14] LABS: Codeine Urine NEGATIVE ng/mL (<50); Hydrocodone Urine NEGATIVE ng/mL (<50); Hydromor Urine 234 ng/mL (<50); Morphine Urine NEGATIVE ng/mL (<50); Norhydrocodone Conf Ur NEGATIVE ng/mL (<50); Noroxycodone Urine 281 ng/mL (<50); Oxycodone Urine 576 ng/mL (<50); Oxymorph Urine 198 ng/mL (<50)
[2020-01-19] MEDS ORDERED: GABAPENTIN 600 MG TAB PO SCH (18:00)
== END 2020-01-16 19:10 | disposition home or self-care (01) ==
LOC: ED 16:30 → EDINP 16:30 → 1E 01-16 02:41

== ENCOUNTER 2023-05-10 10:37 | Observation (INO) ==
[2023-05-10] MEDS ORDERED: NITROGLYCERIN SL 0.4 MG/TAB TAB SL STA (11:30)
--- NOTE | 2023-05-10 11:38 | Emergency Department Note ---
Impression & Plan Chest pain ED Provider Note NAME: LANCE BENTLEY AGE: 62 SEX: M : 1960 ARRIVES VIA: Walk-In INFORMANT: Patient, ED PROVIDER(S): Santo Hill MD CHIEF COMPLAINT: Chest pain HPI: This is a 62-year-old male history of GERD presenting for chest pain. Patient states that over the past 1 month he has noted increasing episodes of chest pain. Notes that initially happened when he was sleeping. These happen a total of 3 times. Usually around 2 or 3 in the morning and wake up with excruciating chest pain in the center of his chest going to the left side. He thought this related to GERD and began using more of his GERD medication including PPI, famotidine and Tums. He notes that even despite this he has continued to have symptoms. Today he had worsening chest pain. Throughout the course of this he went to his friend and used their nitroglycerin with some relief in his symptoms. He then came to the ER for further evaluation. He has no shortness of breath associated. No nausea vomiting, sore throat, fevers or chills. He states he has family history significant for cardiac disease including his father in his early 50s well as his mother dying at age 61 from a heart attack. ROS: See above HPI for pertinent positives & negatives. A total of 10 systems r eviewed and were otherwise negative. PAST MEDICAL HISTORY: See Below PAST SURGICAL HISTORY: See Below FAMILY HISTORY: See Below SOCIAL HISTORY: See Below HOME MEDICATIONS: See Below ALLERGIES: See Below VITALS: See Below PHYSICAL EXAMINATION: General: resting comfortably in no acute distress Head: Normocephalic and atraumatic Eyes: Normal inspection, extraocular muscles intact, no conjunctival pallor Ear, nose, throat: Normal external exam Neck: Normal range of motion Respiratory: Patient is in no respiratory distress, lungs clear to auscultation bilaterally Cardiovascular: RRR without murmur appreciated GI: soft, nontender, no guarding or rebound Extremities: pulses intact with good cap refills, no LE pitting edema or calf tenderness Neuro: The patient awake and alert, appropriately conversive,no focal decifits Skin: Warm, dry, and intact MEDICAL DECISION MAKING: Is a 62-year-old male presenting for chest pain. Patient has a family history of heart disease at this time he is about 1.5 months of intermittent chest pain. Usually at rest, begin to get more persistent and random. Not always exertional. Will get screening EKG, chest pain work-up. Patient's EKG as reviewed below, largely nonischemic. Patient troponin is also negative here. Patient does have significant family history. His work-up otherwise reassuring without significant abnormalities. Discussed these plans with the patient and discussed admission versus discharge. He initially felt more comfortable with admission to rule out any cardiac etiology as he does have family history, previous cardiac catheterization. Patient then felt more comfortable with discharge and want to be discharged. However after discussion, he once again want to be admitted to rule out cardiac etiology. [facility]. Triage Nursing notes reviewed. Prior medical records reviewed Vital Signs: reviewed and remarkable for no significant abnormalities Differential diagnosis: ACS, PE, GERD, costochondritis ER treatment provided: See below Diagnostics interpreted by me: ECG: ECG reviewed by me with normal sinus rhythm, rate of 67 normal axis, normal MO, normal QRS, normal QTc, no ST segment elevations consistent with STEMI criteria Cardiac Monitoring: An order was placed for continuous cardiac monitoring. The monitor shows a rate of with rhythm. Laboratory studies: As stated above and show below. Imaging studies: See below. Radiographic imaging was reviewed by myself Consultation(s): None Past Med/Surg History Medical History Asthma, mild intermittent Diastolic dysfunction Dyslipidemia GERD (gastroesophageal reflux disease) HTN (hypertension) Osteoarthritis Surgical History H/O cardiac catheterization "2010- no significant obstructive coronary artery disease" S/P nasal surgery Social History Smoking Status: Never smoker Do You Dip or Chew Tobacco: No; Hx Alcohol Use: Yes Alcohol type: beer Hx Substance Use: No Preferred Language: Citizen Of [place] Communication Ability: Effective [facility] Required: No Beliefs That Will Affect Care: None Current Living Situation: Spouse Feels Safe at Home: Yes Assistive Devices: Denture - Upper and Glasses Allergies Allergies Allergy/AdvReac Type Severity Reaction Status Date / Time aspirin Allergy Unknown ANAPHYLAXIS Verified 02/13/21 16:53 NSAIDS (Non-Steroidal Allergy Unknown ANAPHYLAXIS Verified 02/13/21 16:53 Anti-Inflamma Home Meds Home Medications Medication Instructions Recorded Confirmed doxepin 25 mg capsule 25 - 50 mg PO HS PRN Hives 01/15/20 05/10/23 triamterene 37.5 1 tab PO QAM 01/15/20 05/10/23 mg-hydrochlorothiazide 25 mg tablet calcium carbonate 200 mg calcium 400 mg PO UD 02/13/21 05/10/23 (500 mg) chewable tablet (Tums) diphenhydramine HCl 25 mg capsule 50 mg PO .ITCHY PRN ALLERGIES 02/13/21 05/10/23 (Benadryl) pantoprazole 40 mg tablet,delayed 40 mg PO DAILY 02/13/21 05/10/23 release famotidine 20 mg tablet 20 mg PO BID PRN heart burn 05/10/23 05/10/23 metoprolol tartrate 25 mg tablet 25 mg PO BID 05/10/23 05/10/23 Previous Rx's Medication Instructions Recorded amlodipine 10 mg tablet 10 mg PO DAILY #30 tabs 01/16/20 albuterol sulfate 90 mcg/actuation 2 puff inhalation QID PRN 05/11/23 aerosol inhaler wheeze/cough 30 days #2 Inhalers Results & Data (ED) Vital Signs Vital Signs - 24 hr 05/10/23 10:48 Temperature 36.0 C L Temperature Source Temporal Artery Scan Pulse Rate 68 Respiratory Rate 16 Respiratory Effort / Characteristics Non-Labored Respiratory Depth Normal Blood Pressure 172/94 H Blood Pressure Mean 120 Pulse Oximetry 97 Oxygen Delivery Method Room Air Sepsis Recent Fever Within 48 Hours No Sepsis New/Unexplained Change in Mental Status N/A Sepsis Action Taken by Nursing No Action Required Laboratory Data 05/10/23 11:07 05/10/23 11:07 Lab Results 05/10/23 05/10/23 05/10/23 Range/Units 11:07 11:07 11:07 WBC 6.23 (4.8-10.8) K/ul RBC 4.38 L (4.70-6.10) M/uL Hgb 14.8 (14.0-18.0) g/dl Hct 39.8 L (42.0-52.0) % MCV 90.9 (80.0-100.0) fL MCH 33.8 (25.0-34.0) pg MCHC 37.2 H (32.0-36.0) g/dL RDW Std Deviation 38.7 (36.4-46.3) fL RDW Coeff of Angelic 11.7 (11.5-14.5) % Plt Count 242 (130-400) K/uL MPV 10.1 (9.4-12.4) fL Neutrophils % (Manual) 62 % Lymphocytes % (Manual) 33 % Monocytes % (Manual) 1 % Eosinophils % (Manual) 1 % Basophils % (Manual) 3 % Neutrophils # (Manual) 3.86 (1.40-6.50) K/uL Total Absolute Neuts 3.86 (1.4-6.5) K/uL Lymphocytes # (Manual) 2.06 (1.2-3.4) K/uL Total Abs Lymphocytes 2.06 (1.2-3.4) K/uL Monocytes # (Manual) 0.06 L (0.11-0.59) K/uL Eosinophils # (Manual) 0.06 (0-0.50) K/uL Basophils # (Manual) 0.19 (0-0.2) K/uL PT 10.0 (9.0-12.0) Seconds INR 0.9 (0.9-1.1) APTT 30.4 (21.0-31.0) Seconds PTT Ratio 1.1 Sodium 136 (136-145) mmol/L Potassium 4.3 (3.5-5.1) mmol/L Chloride 103 (98-107) mmol/L Carbon Dioxide 20 L (21-32) mmol/L Anion Gap 13 H (3-11) BUN 19 (6-23) mg/dl Creatinine 1.13 (0.6-1.4) mg/dl Est Cr Clr Drug Dosing 73.5 ml/min Est GFR ( Amer) 80.3 ml/min Est GFR (Non-Af Amer) 69.3 ml/min BUN/Creatinine Ratio 16.8 (10-20) Glucose 179 H (70-99(Fasting)) mg/dl Calcium 10.1 (8.6-10.3) mg/dl Total Bilirubin 0.3 (0.2-1.0) mg/dl AST 36 (13-39) U/L ALT 29 (7-52) U/L Alkaline Phosphatase 61 (34-104) U/L Troponin I High Sens 2.4 (0-20) pg/ml Total Protein 8.1 (6.0-8.3) gm/dl Albumin 5.0 (3.4-5.0) gm/dl Globulin 3.1 (2.5-4.0) gm/dl Albumin/Globulin Ratio 1.6 (0.9-2) Administered Medications Discontinued Medications Amlodipine Besylate (Amlodipine Besylate 5 Mg Tab) 10 mg PO DAILY TOSHA Stop: 06/10/23 08:59 Last Admin: 05/11/23 08:58 Dose: 10 mg Documented By: AJAY Enoxaparin Sodium (Enoxaparin Inj 40 Mg/0.4 Ml Syr) 40 mg SQ Q24H TOSHA Stop: 06/09/23 14:59 Last Admin: 05/10/23 14:38 Dose: 40 mg Documented By: NAKUL Metoprolol Tartrate (Metoprolol Tartrate 25 Mg Tab) 25 mg PO BID TOSHA Stop: 06/09/23 20:59 Last Admin: 05/11/23 08:58 Dose: 25 mg Documented By: Admin: 05/10/23 21:14 Dose: 25 mg Documented By: BRANDON Nitroglycerin (Nitroglycerin Sl 0.4 Mg/Tab Tab) 0.4 mg SL NOW STA Stop: 05/10/23 11:31 Last Admin: 05/10/23 11:39 Dose: 0.4 mg Documented By: PATRICE Pantoprazole Sodium (Pantoprazole 40 Mg Tab) 40 mg PO DAILY TOSHA Stop: 06/10/23 08:59 Last Admin: 05/11/23 08:57 Dose: 40 mg Documented By: AJAY Triamterene/Hydrochlorothiazide (Triamterene/Hctz 37.5/25mg Tab) 1 tab PO QAM TOSHA Stop: 06/10/23 08:59 Last Admin: 05/11/23 08:57 Dose: 1 tab Documented By: AJAY Discharge Plan Visit Data Chief Complaint: Chest Pain Stated Complaint: sharp pain in L side chest, lingering, last month ED Provider: Santo Hill Discharge Problem: Chest pain Patient Disposition: Admitted As Inpatient Discharge Instructions Interventions: ED Discharge Assessment Last Done: 05/10/23 22:05
--- NOTE | 2023-05-10 12:27 | XRay Report ---
XR chest 1V portable HISTORY: 62 years-old Male Chest pain, nonspecific COMPARISON: 02/13/2021 TECHNIQUE: AP view of the chest FINDINGS: Cardiac silhouette is enlarged. No pneumothorax, pleural effusion, airspace consolidation or pulmonar y edema. Bones appear grossly intact. Spondylitic spurring of the spine. IMPRESSION: No acute process. ACT 112: Negative or not required by law. The above report was generated using voice recognition software. It may contain grammatical, syntax o r spelling errors. Electronically signed by: Rasta Cruz M.D. 05/10/2023 12:26 PM
[2023-05-10 12:29] LABS: INR 0.9 (0.9-1.1); Partial Thromboplastin Ratio 1.1; Partial Thromboplastin Time 30.4 Seconds (21.0-31.0)
[2023-05-10 12:38] LABS: ALC (manual) 2.06 K/uL (1.2-3.4); ANC (manual) 3.86 K/uL (1.4-6.5); Basophils # (manual) 0.19 K/uL (0-0.2); Basophils % (manual) 3 %; Eosinophils # (manual) 0.06 K/uL (0-0.50); Eosinophils % (manual) 1 %; Hematocrit (blood only) 39.8 % (42.0-52.0); Hemoglobin 14.8 g/dl (14.0-18.0); Lymphocytes # (manual) 2.06 K/uL (1.2-3.4); Lymphocytes % (manual) 33 %; Mean Corpuscular Hemoglobin 33.8 pg (25.0-34.0); Mean Corpuscular Hgb Conc 37.2 g/dL (32.0-36.0); Mean Corpuscular Volume 90.9 fL (80.0-100.0); Mean Platelet Volume 10.1 fL (9.4-12.4); Monocytes # (manual) 0.06 K/uL (0.11-0.59); Monocytes % (manual) 1 %; Neutrophils # (manual) 3.86 K/uL (1.40-6.50); Neutrophils % (manual) 62 %; Platelet Count 242 K/uL (130-400); RDW Coefficient of Variation 11.7 % (11.5-14.5); RDW Standard Deviation 38.7 fL (36.4-46.3); Red Blood Count 4.38 M/uL (4.70-6.10); White Blood Count 6.23 K/ul (4.8-10.8)
[2023-05-10 12:55] LABS: Albumin Globulin Ratio 1.6 (0.9-2); BUN Creatinine Ratio 16.8 (10-20); Bilirubin,Total 0.3 mg/dl (0.2-1.0); Calcium 10.1 mg/dl (8.6-10.3); Creatinine Clr Calc Pharmacy 73.5 ml/min; Est GFR (African American) 80.3 ml/min; Est GFR (Non-African American) 69.3 ml/min; Globulin 3.1 gm/dl (2.5-4.0); Total Protein 8.1 gm/dl (6.0-8.3); Troponin I High Sensitivity 2.4 pg/ml (0-20)
[2023-05-10 13:10] LABS: Potassium 4.3 mmol/L (3.5-5.1)
[2023-05-10] MEDS ORDERED: ACETAMINOPHEN 325 MG TAB PO PRN (14:42)
[2023-05-10] MEDS ORDERED: NITROGLYCERIN SL 0.4 MG/TAB TAB SL PRN (14:42)
[2023-05-10] MEDS ORDERED: ENOXAPARIN INJ 40 MG/0.4 ML SYR SQ SCH (15:00)
[2023-05-10] MEDS ORDERED: FAMOTIDINE 20 MG TAB PO PRN (15:09)
--- NOTE | 2023-05-10 16:06 | History & Physical Report ---
Date of Service May 10, 2023 Assessment & Plan (1) Chest pain: Plan: Admit to telemetry Patient presenting from home for evaluation of chest pain, atypical. Risk factors: HTN, + family history. History of cardiac cath in 2010 showing mild nonobstructive disease. Initial HS troponin negative, EKG without acute ST changes Symptoms seem to be musculoskeletal in nature however given above risk factors, will proceed with stress testing in the morning Check lipid panel (2) HTN (hypertension): Plan: BP elevated on presentation, likely situational. Received sublingual nitroglycerin with improvement. Continue home dose amlodipine and metoprolol for now, make adjustments as needed (3) GERD (gastroesophageal reflux disease): Plan: Continue PPI, PRN H2 susan DVT PROPHYLAXIS SQ Lovenox Patient is in coloration with Dr. Dietz. I spent a total of 75 minutes coordinating, documenting, and providing care for this patient excluding time spent in the performance of separately billed services. This included personally reviewing all current laboratories and imaging studies, medication reconciliation, outpatient chart review, and discussion with specialists. Admission and Anticipated Discharge Date Admission Date: May 10, 2023 History of Present Illness Chief Complaint: Chest pain Primary Care Provider: Erik Snyder MD 62-year-old male with PMH asthma, HTN, GERD, and other problems listed below who presents to the ED for evaluation of chest pain. History obtained from the patient and review of outpatient PCP and cardiology records. Patient reports experiencing intermittent episodes of chest pain over the past month and a half. Reports that in the middle of the night, he will get a sharp stabbing left- sided chest pain with associated left arm numbness and diaphoresis. Symptoms typically resolve on their own. 5 nights ago, patient experienced another similar episode however pain never fully resolved. He states he took a friend's nitroglycerin tablet and had some relief in the pain. Patient denies associated shortness of breath and discomfort does not seem to be exertional related. Patient does note some increased coughing over the past few weeks due to underlying mild asthma and change in weather. He denies lightheadedness, dizziness, syncopal events. No other recent illnesses, fevers, chills. He denies abdominal pain, nausea, vomiting, diarrhea. No urinary symptoms. In the ED, BP was elevated 172/94 which improved after several nitroglycerin. Initial HS troponin negative, EKG without acute ST changes. Allergies Allergy/AdvReac Type Severity Reaction Status Date / Time aspirin Allergy Unknown ANAPHYLAXIS Verified 02/13/21 16:53 NSAIDS (Non-Steroidal Allergy Unknown ANAPHYLAXIS Verified 02/13/21 16:53 Anti-Inflamma Home Medications Medication Instructions Recorded Confirmed Type doxepin 25 mg capsule 25 - 50 mg PO HS PRN Hives 01/15/20 05/10/23 History triamterene 37.5 1 tab PO QAM 01/15/20 05/10/23 History mg-hydrochlorothiazide 25 mg tablet amlodipine 10 mg tablet 10 mg PO DAILY #30 tabs 01/16/20 05/10/23 Rx albuterol sulfate 90 mcg/actuation 2 puff inhalation QID PRN 02/13/21 05/10/23 History aerosol inhaler wheeze/cough calcium carbonate 200 mg calcium 400 mg PO UD 02/13/21 05/10/23 History (500 mg) chewable tablet (Tums) diphenhydramine HCl 25 mg capsule 50 mg PO .ITCHY PRN ALLERGIES 02/13/21 05/10/23 History (Benadryl) pantoprazole 40 mg tablet,delayed 40 mg PO DAILY 02/13/21 05/10/23 History release famotidine 20 mg tablet 20 mg PO BID PRN heart burn 05/10/23 05/10/23 History metoprolol tartrate 25 mg tablet 25 mg PO BID 05/10/23 05/10/23 History Past Med/Surg History Medical History Asthma, mild intermittent Diastolic dysfunction Dyslipidemia GERD (gastroesophageal reflux disease) HTN (hypertension) Osteoarthritis Surgical History H/O cardiac catheterization "2010- no significant obstructive coronary artery disease" S/P nasal surgery Social History Smoking Status: Never smoker Do You Dip or Chew Tobacco: No; Hx Alcohol Use: Yes Alcohol type: beer Hx Substance Use: No Preferred Language: Chadian Communication Ability: Effective Stitching Machine Feeder Or Offbearer Required: No Beliefs That Will Affect Care: None Current Living Situation: Spouse Feels Safe at Home: Yes Assistive Devices: Denture - Upper and Glasses Physical Exam Constitutional: WD/WN, vitals as above Eyes: PERRL, conjunctivae normal, anicteric sclerae ENMT: external ear and nose normal, oropharynx normal Respiratory: normal respiratory effort, lungs clear to auscultation Cardiovascular: Rate/Rhythm: regular rate and regular rhythm Vessels: normal peripheral pulses Extremities: no edema Gastrointestinal (Abdomen): normal bowel sounds, soft, nontender, no hepatosplenomegaly Musculoskeletal: no cyanosis or clubbing, extremities motor strength 5/5 Skin: no rashes, warm and dry Neurologic: PERRL, EOMI, accommodation nl, no face palsy, no dysarthria Psychiatric: A+Ox3, euthymic affect Results & Data Results & Data Vital Signs (Past 12 Hours) Vital Signs Temp Pulse Pulse Resp BP BP Pulse Ox 05/10/23 15:37 60 05/10/23 15:04 05/10/23 15:04 57 L 18 154/86 H 97 05/10/23 14:49 63 20 152/82 H 98 05/10/23 11:41 68 05/10/23 11:39 95 05/10/23 10:48 36.0 C L 68 16 172/94 H 97 Pulse Ox O2 Del Method O2 Del Method 05/10/23 15:37 05/10/23 15:04 98 Room Air 05/10/23 15:04 Room Air 05/10/23 14:49 Room Air 05/10/23 11:41 05/10/23 11:39 Room Air 05/10/23 10:48 Room Air Laboratory Results Short CBC 05/10/23 Range/Units 11:07 WBC 6.23 (4.8-10.8) K/ul Hgb 14.8 (14.0-18.0) g/dl Hct 39.8 L (42.0-52.0) % Plt Count 242 (130-400) K/uL BMP 05/10/23 11:07 Sodium 136 Potassium 4.3 Chloride 103 Carbon Dioxide 20 L BUN 19 Creatinine 1.13 Glucose 179 H Calcium 10.1 Liver Function 05/10/23 Range/Units 11:07 Total Bilirubin 0.3 (0.2-1.0) mg/dl AST 36 (13-39) U/L ALT 29 (7-52) U/L Alkaline Phosphatase 61 (34-104) U/L Albumin 5.0 (3.4-5.0) gm/dl Diagnostic Findings Chest X-Ray 05/10/23 10:52 XR chest 1V portable HISTORY: 62 years-old Male Chest pain, nonspecific COMPARISON: 02/13/2021 TECHNIQUE: AP view of the chest FINDINGS: Cardiac silhouette is enlarged. No pneumothorax, pleural effusion, airspace consolidation or pulmonary edema. Bones appear grossly intact. Spondylitic spurring of the spine. IMPRESSION: No acute process. ACT 112: Negative or not required by law. The above report was generated using voice recognition software. It may contain grammatical, syntax or spelling errors. Electronically signed by: Rasta Cruz M.D. 05/10/2023 12:26 PM Code Status & VTE Plan VTE Prophylaxis Plan VTE Prophylaxis will be ordered: Yes Supervising Physician Co-Signing Physician Notes I have seen and discussed the case with the collaborating YARD COUPLER. I agree with the above H&P. I have reviewed and confirmed the patients medical history, the findings on physical examination, and the patients diagnosis and treatment plan with Love YARD COUPLER and agree with the information documented. In short, Mr. 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 Pain is atypical--reproducible along costochondral margins. Patient mentions that his chronic cough worsens during winter, and he has been coughing with more vigor, in addition to a laborous job. He denies any illness recently. EKG stable. Trop negative. Pain reportedly occurs at night when laying on side. Plan monitor overnight--given history of CAD noted 2010 with intermediate risk, plan for stress test in am. Otherwise, conservative management. Consider discharge with inhaler (prior relief with albuterol). Rest of plan as above (1) Chest pain Chest pain type: unspecified Qualified Code(s): R07.9 - Chest pain, uns pecified
[2023-05-10] MEDS ORDERED: INFLUENZA VIRUS QUADRIVALENT VACCINE (IIV4) 0.5 ML SYR IM ONE (18:06)
[2023-05-10] MEDS: METOPROLOL TARTRATE 25 MG TAB PO SCH (21:14)
[2023-05-11 06:23] LABS: Hematocrit (blood only) 39.3 % (42.0-52.0); Hemoglobin 14.7 g/dl (14.0-18.0); Mean Corpuscular Hemoglobin 33.6 pg (25.0-34.0); Mean Corpuscular Hgb Conc 37.4 g/dL (32.0-36.0); Mean Corpuscular Volume 89.7 fL (80.0-100.0); Mean Platelet Volume 9.4 fL (9.4-12.4); Platelet Count 234 K/uL (130-400); RDW Coefficient of Variation 11.9 % (11.5-14.5); RDW Standard Deviation 38.8 fL (36.4-46.3); Red Blood Count 4.38 M/uL (4.70-6.10); White Blood Count 5.75 K/ul (4.8-10.8)
[2023-05-11 06:47] LABS: Anion Gap 7 (3-11); BUN Creatinine Ratio 18.9 (10-20); Blood Urea Nitrogen 20 mg/dl (6-23); Calcium 9.1 mg/dl (8.6-10.3); Carbon Dioxide 26 mmol/L (21-32); Chloride 103 mmol/L (98-107); Cholesterol 244 mg/dl (0-200); Creatinine Clr Calc Pharmacy 76.2 ml/min; Est GFR (African American) 86.8 ml/min; Est GFR (Non-African American) 74.8 ml/min; Glucose 131 mg/dl (70-99(Fasting)); HDL Cholesterol 36 mg/dl; Potassium 3.8 mmol/L (3.5-5.1); Sodium 136 mmol/L (136-145); Triglycerides 675 mg/dl (0-150)
[2023-05-11 06:48] LABS: Chol HDL Ratio 6.8 (0-5)
--- NOTE | 2023-05-11 07:30 | Electrocardiogram Report ---
Test Reason : Blood Pressure : / mmHG Vent. Rate : 067 BPM Atrial Rate : 067 BPM P-R Int : 154 ms QRS Dur : 086 ms QT Int : 392 ms P-R-T Axes : 052 015 040 degrees QTc Int : 414 ms Normal sinus rhythm Normal ECG When compared with ECG of 13-FEB-2021 14:54, No significant change was found Confirmed by Johnathon Fernandez ([id number]) on 05/11/2023 7:29:42 AM Referred By: Confirmed By:Johnathon Fernandez
[2023-05-11] MEDS: METOPROLOL TARTRATE 25 MG TAB PO SCH (08:58)
--- NOTE | 2023-05-11 08:58 | Electrocardiogram Report ---
Test Reason : Blood Pressure : / mmHG Vent. Rate : 056 BPM Atrial Rate : 056 BPM P-R Int : 156 ms QRS Dur : 080 ms QT Int : 436 ms P-R-T Axes : 069 037 036 degrees QTc Int : 420 ms Sinus bradycardia Otherwise normal ECG When compared with ECG of 10-MAY-2023 10:58, No significant change was found Confirmed by Arnel Skinner ([id number]) on 05/11/2023 8:57:34 AM Referred By: REFERRED SELF Confirmed By:Arnel Skinner
[2023-05-11] MEDS ORDERED: amLODIPine BESYLATE 5 MG TAB PO SCH (09:00)
[2023-05-11] MEDS ORDERED: TRIAMTERENE/HCTZ 37.5/25MG TAB PO SCH (09:00)
[2023-05-11] MEDS ORDERED: PANTOprazole 40 MG TAB PO SCH (09:00)
--- NOTE | 2023-05-11 13:53 | Discharge Summary ---
Discharge Summary Date of Service May 11, 2023 Notes For Next Care Provider -Consider PFTS given history of occupational lung disease Medication Changes From Visit -Refilled albuterol inhaler Admission HPI Per Admitting Provider 62-year-old male with PMH asthma, HTN, GERD, and other problems listed below who presents to the ED for evaluation of chest pain. History obtained from the patient and review of outpatient PCP and cardiology records. Patient reports experiencing intermittent episodes of chest pain over the past month and a half. Reports that in the middle of the night, he will get a sharp stabbing left- sided chest pain with associated left arm numbness and diaphoresis. Symptoms typically resolve on their own. 5 nights ago, patient experienced another similar episode however pain never fully resolved. He states he took a friend's nitroglycerin tablet and had some relief in the pain. Patient denies associated shortness of breath and discomfort does not seem to be exertional related. Patient does note some increased coughing over the past few weeks due to underlying mild asthma and change in weather. He denies lightheadedness, dizziness, syncopal events. No other recent illnesses, fevers, chills. He denies abdominal pain, nausea, vomiting, diarrhea. No urinary symptoms. In the ED, BP was elevated 172/94 which improved after several nitroglycerin. Initial HS troponin negative, EKG without acute ST changes. Principal Dx & Hospital Course #1 = Principal Diagnosis (1) Chest pain: (2) HTN (hypertension): (3) GERD (gastroesophageal reflux disease): Mr. Triana is a 62 year old gentleman with past medical history remarkable for nonobstructive CAD, chronic noncardiac chest pain, GERD, and hypertension who presented to ED on 05/10 due to chest. Initial, ACS work up negative, including EKG and troponins. Pain atypical in nature, notably reproducible along costochondral margins. Patient at intermediate risk for ACS therefore stress test obtained--which was negative for ischemia. Patient reports remote history of "lung disease" nearly requiring fdc given the reactive nature. He states that recent temperature changes have caused coughing spells, which could be contributing to the costochondritis. On day of discharge, patient discharged without pain, tolerating diet, and ambuating without difficulty. It was recommended patient follow up with PCP to discuss PFTs and albuterol prn inhaler prescribed. Discussed pain management options OTC. Discharge Exam Constitutional WD/WN, vitals as above Respiratory normal respiratory effort, lungs clear to auscultation Cardiovascular RRR, no murmur, no edema Updated Medication List Medication Instructions Recorded Confirmed Type doxepin 25 mg capsule 25 - 50 mg PO HS PRN Hives 01/15/20 05/10/23 History triamterene 37.5 1 tab PO QAM 01/15/20 05/10/23 History mg-hydrochlorothiazide 25 mg tablet amlodipine 10 mg tablet 10 mg PO DAILY #30 tabs 01/16/20 05/10/23 Rx calcium carbonate 200 mg calcium 400 mg PO UD 02/13/21 05/10/23 History (500 mg) chewable tablet (Tums) diphenhydramine HCl 25 mg capsule 50 mg PO .ITCHY PRN ALLERGIES 02/13/21 05/10/23 History (Benadryl) pantoprazole 40 mg tablet,delayed 40 mg PO DAILY 02/13/21 05/10/23 History release famotidine 20 mg tablet 20 mg PO BID PRN heart burn 05/10/23 05/10/23 History metoprolol tartrate 25 mg tablet 25 mg PO BID 05/10/23 05/10/23 History albuterol sulfate 90 mcg/actuation 2 puff inhalation QID PRN 05/11/23 Rx aerosol inhaler wheeze/cough 30 days #2 Inhalers Hospital Stay Data Consultations 05/10/23 13:38 ED Decision to Admit Stat Pending Results Patient Have Any Pending Studies at Discharge: No Discharge Instructions Given to Patient (Per Discharging Provider) You were admitted for chest pain. Given you have risk factors for heart disease, especially with history of coronary disease noted on Cath from 2010, you were monitored overnight and completed a stress test. This stress test was normal, meaning no signs of ischemia, areas of blockages restricting blood flow to your heart. It is likely given the pain is reproducible with touch, that this is a musculoskeletal issue, maybe a combination of a laborious job and the coughing you reported with change of weather. A new albuterol inhaler was prescribed. Please utilize tylenol [id number] for pain. -650mg Tylenol every 4 to 6 hours as needed for pain ( no more than 4000mg a day) -Consider topical agents (salonpas, tigerbalm, icyhot, etc) It is recommended you follow up with your PCP for evaluation of COPD given your reports of inhalation injury from occupational exposure. Total Time Total Time Spent Total Time Spent (In Minutes): 35
== END 2023-05-11 14:46 | disposition home or self-care (01) ==
LOC: EDINP 10:37 → ED 10:37 → 2S 22:05